=== PATIENT | male | born 1940 | race Hispanic/Latino ===

== ENCOUNTER 2018-05-22 13:33 | Emergency (ER) | payer OTHER ==
[~2018-05-22] VITALS: Ht 162.6 cm; Wt 59.0 kg
[~2018-05-22 13:33] MED LIST: BLOOD PRESSURE; BLOOD SUGAR; TYLENOL WITH C1 EACH PO; UNK HTN MED; [UNRECOGNIZED DRUG - REMARK]
--- OUTSIDE RECORDS SUMMARY | 2018-05-22 13:37 | XMS REPORT | Clinical Summary ---
Author Author MORGAN [facility] Address Unknown Phone Unavailable Care Team Providers Care Metal Temperer Name Role Phone Pj Claros Unavailable Allergies No Known Allergies Medications End Date Status Medication Sig Dispensed Refills Start Date 04/01/2019 Active aspirin 81 MG EC tablet Take 1 tablet 360 tablet 0 (81 mg total) 8 by mouth daily. 06/29/2018 Active atorvastatin (LIPITOR) 80 Take 1 tablet 90 tablet 0 MG tablet (80 mg total) 8 by mouth nightly for 90 days. 06/29/2018 Active metoprolol (LOPRESSOR) 25 Take 0.5 90 tablet 0 MG tablet tablets (12.5 8 mg total) by mouth 2 (two) times daily for 90 days. 03/31/2019 Active albuterol HFA (VENTOLIN Inhale 1 puff 1 Inhaler 2 HFA) 90 mcg/actuation by mouth via 8 inhaler inhaler every 6 (six) hours as needed for Wheezing. Active glimepiride (AMARYL) 4 MG Take 4 mg by 0 tablet mouth 2 (two) times daily. Active metFORMIN (GLUCOPHAGE) Take 1,000 mg 0 1000 MG tablet by mouth 2 (two) times daily with breakfast and dinner. Active acetaminophen-codeine Take 1 tablet 0 (TYLENOL #3) 300-30 mg by mouth per tablet every 4 (four) hours as needed for Pain. Active nitroglycerin (NITROSTAT) Place 0.4 mg 0 0.4 MG SL tablet under the tongue every 5 (five) minutes as needed for Chest pain Put 1 pill under tongue every 5min as needed for chest pain.No more than 3 doses in 15min.Call 911 if pain is unrelieved 5min after 1st dose . Active fluocinonide (LIDEX) 0.05 Apply 0 % cream topically 2 (two) times daily as needed. Active nicotine (NICODERM CQ) 21 Place 1 patch 0 mg/24 hr patch onto the skin daily Tapering down 14mg, 7 mg . Active clopidogrel (PLAVIX) 75 Take 75 mg by 0 mg tablet mouth daily. Active clotrimazole (LOTRIMIN) 1 Apply 0 % cream topically 2 (two) times daily. 05/20/2019 Active aspirin 81 MG EC tablet Take 1 tablet 90 tablet 3 (81 mg total) 8 by mouth daily. 05/20/2019 Active clopidogrel (PLAVIX) 75 Take 1 tablet 90 tablet 3 mg tablet (75 mg total) 8 by mouth daily. Active enoxaparin (LOVENOX) 60 Inject 0.6 10 Syringe 0 mg/0.6 mL Syrg mLs (60 mg 8 total) subcutaneousl y 2 (two) times daily. 04/13/2018 Discontinued acetaminophen (TYLENOL) Take 2 30 tablet 0 325 MG tablet tablets (650 8 mg total) by mouth every 4 (four) hours as needed for up to 360 days. 04/10/2018 acetaminophen-codeine Take 1 tablet 30 tablet 0 (TYLENOL #3) 300-30 mg by mouth 8 per tablet every 4 (four) hours as needed for up to 10 days. Max Daily Amount: 6 tablets 04/13/2018 Discontinued clopidogrel (PLAVIX) 75 Take 1 tablet 90 tablet 0 mg tablet (75 mg total) 8 by mouth daily for 90 days. 04/10/2018 docusate sodium (COLACE) Take 1 10 capsule 0 100 MG capsule capsule (100 8 mg total) by mouth 2 (two) times daily for 10 days. 05/17/2018 Discontinued lisinopril Take 1 tablet 90 tablet 0 (PRINIVIL,ZESTRIL) 2.5 MG (2.5 mg 8 tablet total) by mouth daily for 90 days. 04/03/2018 polyethylene glycol Take 17 g by 14 each 0 (GLYCOLAX) 17 gram packet mouth daily 8 for 3 days. 04/13/2018 Discontinued aspirin 81 MG EC tablet Take 81 mg by 0 mouth daily. 04/02/2018 Discontinued cilostazol (PLETAL) 50 MG Take 50 mg by 0 tablet mouth 2 (two) times daily. 04/02/2018 Discontinued baclofen (LIORESAL) 10 MG Take 10 mg by 0 tablet mouth 3 (three) times daily. 04/02/2018 Discontinued isosorbide mononitrate Take 30 mg by 0 (IMDUR) 30 MG 24 hr mouth daily. tablet 04/02/2018 Discontinued lisinopril Take 5 mg by 0 (PRINIVIL,ZESTRIL) 5 MG mouth daily. tablet 04/02/2018 Discontinued metoprolol (LOPRESSOR) 25 Take 25 mg by 0 MG tablet mouth daily. 04/02/2018 Discontinued fexofenadine (HOWARD) Take 180 mg 0 180 MG tablet by mouth daily. 05/17/2018 Discontinued cilostazol (PLETAL) 50 MG Take 50 mg by 0 tablet mouth 2 (two) times daily. 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 Acute coronary syndrome Hyperglycemia Encounters Care Team Description Date Type Specialty Alexander Bobo MD 05/18/2018 Anesthesia Event Rickey Diaz MD ABD AO & LOWER EXT ANGIOS/ POSS PPI 05/17/2018 Surgery Rickey Diaz MD PAD (peripheral artery disease) (HCC) (Primary Dx) 05/17/2018 Hospital Cardiology - Encounter 05/19/2018 Delonte Trejo MD S/P CABG x 3 (Primary Dx) 04/13/2018 Office Visit Transplant Flora English MD Left upper quadrant pain (Primary Dx); Acute coronary syndrome (HCC); Leukocytosis, unspecified type; Orthostatic hypotension; History of heart bypass surgery 04/07/2018 Emergency Emergency Medicine Delonte Trejo MD BYPASS,AORTO CORONARY JORJE/SVG 03/27/2018 Surgery Brittani Schuster MD 03/27/2018 Anesthesia Event Lynda Manzano MD L CATH & PCI 03/23/2018 Surgery Pj Boyer MD Castillo, Cesar Augusto, MD Shafii, Alexis Edward, MD NSTEMI (non-ST elevated myocardial infarction) (HCC) (Primary Dx); Acute respiratory insufficiency; Acute on chronic systolic heart failure (HCC); Internal carotid artery stenosis, left 03/23/2018 Hospital Cardiology - Encounter 04/02/2018 03/23/2018 Orders Only General Internal Medicine after 05/21/2017 Social History Date Tobacco Use Types Packs/Day Years Used Quit: 03/23/2018 Former Smoker Cigarettes 0.5 50 Smokeless Tobacco: Never Used Comments: Pt currently doing nicotine patches. Alcohol Use Drinks/Week oz/Week Comments No Sex Assigned at Date Recorded Not on file Industry Job Start Date Occupation Not on file Not on file Not on file Travel End Travel History Travel Start No recent travel history available. Last Filed Vital Signs Time Taken Vital Sign Reading 05/19/2018 8:08 PM ELECTROLYSIS NEEDLE OPERATOR Blood Pressure 106/53 05/19/2018 8:08 PM ELECTROLYSIS NEEDLE OPERATOR Pulse 91 05/19/2018 8:08 PM ELECTROLYSIS NEEDLE OPERATOR Temperature 36.6 C (97.8 F) 05/19/2018 8:08 PM ELECTROLYSIS NEEDLE OPERATOR Respiratory Rate 17 05/19/2018 8:08 PM ELECTROLYSIS NEEDLE OPERATOR Oxygen Saturation 97% 05/18/2018 11:16 AM ELECTROLYSIS NEEDLE OPERATOR Inhaled Oxygen 21% Concentration 05/19/2018 7:55 AM ELECTROLYSIS NEEDLE OPERATOR Weight 49.2 kg (108 lb 8.5 oz) 05/17/2018 9:56 AM ELECTROLYSIS NEEDLE OPERATOR Height 162.6 cm (5' 4") 05/19/2018 7:55 AM ELECTROLYSIS NEEDLE OPERATOR Body Mass Index 18.63 Plan of Treatment Care Team Description Date Type Specialty Eldon Brooke MD [address] [facility] [address] [place] [address] [phone] PERIPHERAL ANGIOS / AORTOGRAM 05/24/2018 Surgery Health Maintenance Due Date Last Done Comments INFLUENZA VACCINE 03/20/2018 Implants Device Identifier Shelf Expiration Date Model / Serial / Lot Implanted Type Area Manufactur er [id number] 02/17/2019 [id number] / / [id number] Device Clsr Angio-Seal Vip 6fr Cardiovasc ST RENU [id number] - [id number] ular MED:CARDIA Implanted: Qty: 1 on 05/17/2018 by Rickey Machado MD 07/13/2019 [id number] / N/A / [id number] Flseal Vhsd Full Strlprep 10ml Cement/Sharath N/A: Chest PALACIO:BIO [id number] - Sn/A ler/Adhesi SCI Implanted: Qty: 1 on 03/27/2018 by Delonte Beyer MD Procedures Comments Procedure Name Priority Date/Time Associated Diagnosis REPORT OF PROCEDURE - 05/22/2018 ENDOSCOPY SCAN 12:34 PM ELECTROLYSIS NEEDLE OPERATOR CARDIAC CATH REPORT - 05/22/2018 SCAN 12:34 PM ELECTROLYSIS NEEDLE OPERATOR RHYTHM STRIP - SCAN 05/22/2018 12:34 PM ELECTROLYSIS NEEDLE OPERATOR POCT-GLUCOSE METER Routine 05/19/2018 4:46 PM ELECTROLYSIS NEEDLE OPERATOR POCT-GLUCOSE METER Routine 05/19/2018 11:29 AM ELECTROLYSIS NEEDLE OPERATOR POCT-GLUCOSE METER Routine 05/19/2018 8:04 AM ELECTROLYSIS NEEDLE OPERATOR CBC W/PLT COUNT & AUTO Routine 05/19/2018 DIFFERENTIAL 4:43 AM ELECTROLYSIS NEEDLE OPERATOR MAGNESIUM Routine 05/19/2018 4:43 AM ELECTROLYSIS NEEDLE OPERATOR APTT Routine 05/19/2018 4:43 AM ELECTROLYSIS NEEDLE OPERATOR CBC W/PLT COUNT & AUTO Routine 05/19/2018 DIFFERENTIAL 4:43 AM ELECTROLYSIS NEEDLE OPERATOR POCT-GLUCOSE METER Routine 05/18/2018 9:40 PM ELECTROLYSIS NEEDLE OPERATOR POCT-GLUCOSE METER Routine 05/18/2018 5:22 PM ELECTROLYSIS NEEDLE OPERATOR POCT-GLUCOSE METER Routine 05/18/2018 12:55 PM ELECTROLYSIS NEEDLE OPERATOR POCT-GLUCOSE METER Routine 05/18/2018 8:14 AM ELECTROLYSIS NEEDLE OPERATOR APTT Routine 05/18/2018 4:10 AM ELECTROLYSIS NEEDLE OPERATOR CBC W/PLT COUNT & AUTO Routine 05/18/2018 DIFFERENTIAL 4:08 AM ELECTROLYSIS NEEDLE OPERATOR MAGNESIUM Routine 05/18/2018 4:08 AM ELECTROLYSIS NEEDLE OPERATOR BASIC METABOLIC PANEL (7) Routine 05/18/2018 4:08 AM ELECTROLYSIS NEEDLE OPERATOR CBC W/PLT COUNT & AUTO Routine 05/18/2018 DIFFERENTIAL 4:08 AM ELECTROLYSIS NEEDLE OPERATOR POCT-ACT Routine 05/17/2018 6:58 PM ELECTROLYSIS NEEDLE OPERATOR ABD AO & LOWER EXT 05/17/2018 PAD (peripheral artery ANGIOS/ POSS PPI 4:45 PM ELECTROLYSIS NEEDLE OPERATOR disease) (HCC) Case Notes POP6. 604mGy POCT-GLUCOSE METER Routine 05/17/2018 11:34 AM ELECTROLYSIS NEEDLE OPERATOR ED ECG INTERPRETATION Routine 04/07/2018 11:18 PM CDT 2D ECHO W/ DOPPLER STAT 04/07/2018 (CW/PW/COLOR) 6:20 PM CDT POCT-LACTIC ACID, VENOUS Routine 04/07/2018 4:58 PM CDT URINALYSIS W/ REFLEX STAT 04/07/2018 URINE CULTURE 3:19 PM CDT POCT-LACTIC ACID, VENOUS Routine 04/07/2018 2:44 PM CDT BLOOD CULTURE STAT 04/07/2018 12:07 PM CDT CBC W/PLT COUNT & AUTO STAT 04/07/2018 DIFFERENTIAL 12:06 PM CDT B-TYPE NATRIURETIC FACTOR STAT 04/07/2018 (BNP) 12:06 PM CDT CREATINE KINASE (CK), STAT 04/07/2018 TOTAL AND MB 12:06 PM CDT AMYLASE STAT 04/07/2018 12:06 PM CDT CBC W/PLT COUNT & AUTO STAT 04/07/2018 DIFFERENTIAL 12:06 PM CDT PROTHROMBIN TIME/INR STAT 04/07/2018 12:06 PM CDT TROPONIN I STAT 04/07/2018 12:06 PM CDT MAGNESIUM STAT 04/07/2018 12:06 PM CDT LIPASE STAT 04/07/2018 12:06 PM CDT HEPATIC FUNCTION PANEL STAT 04/07/2018 12:06 PM CDT BASIC METABOLIC PANEL (7) STAT 04/07/2018 12:06 PM CDT PROCALCITONIN STAT 04/07/2018 12:06 PM CDT XR CHEST 1 VIEW STAT 04/07/2018 PORTABLE/BEDSIDE 11:55 AM CDT POCT-LACTIC ACID, VENOUS Routine 04/07/2018 11:52 AM CDT POCT-GLUCOSE METER Routine 04/07/2018 11:51 AM CDT BLOOD CULTURE STAT 04/07/2018 11:50 AM CDT ECG 12-LEAD Routine 04/07/2018 11:33 AM CDT Procedure Note - Interface, External Ris In - 04/07/2018 1:47 PM CDT Ventricula r Rate 75 BPM Atrial Rate 75 BPM P-R Interval 150 ms QRS Duration 96 ms Q-T Interval 448 ms QTC Calculatio n(Bazett) 500 ms P [place] 82 degrees R [place] -24 degrees T [place] 109 degrees Normal sinus rhythm Low voltage QRS ST & Marked T wave abnormalit y, consider anterolate ral ischemia Prolonged QT Abnormal ECG When compared with ECG of 09-OCT-201 8 06:17, Criteria for Septal infarct are no longer Present Criteria for Inferior infarct are no longer Present T wave inversion now evident in Anterior leads QT has lengthened ECG 12-LEAD Routine 04/07/2018 11:33 AM CDT REPORT OF PROCEDURE - 04/04/2018 ENDOSCOPY SCAN 11:00 AM CDT CARDIAC CATH REPORT - 04/04/2018 SCAN 11:00 AM CDT RHYTHM STRIP - SCAN 04/04/2018 11:00 AM CDT POCT-GLUCOSE METER Routine 04/02/2018 12:26 PM CDT POCT-GLUCOSE METER Routine 04/02/2018 7:12 AM CDT POCT-GLUCOSE METER Routine 04/01/2018 9:14 PM CDT POCT-GLUCOSE METER Routine 04/01/2018 5:10 PM CDT POCT-GLUCOSE METER Routine 04/01/2018 12:01 PM CDT POCT-GLUCOSE METER Routine 04/01/2018 8:01 AM CDT XR CHEST 1 VIEW Routine 04/01/2018 PORTABLE/BEDSIDE 7:29 AM CDT CBC W/PLT COUNT & AUTO Routine 04/01/2018 DIFFERENTIAL 4:42 AM CDT MAGNESIUM Routine 04/01/2018 4:42 AM CDT BASIC METABOLIC PANEL (7) Routine 04/01/2018 4:42 AM CDT CBC W/PLT COUNT & AUTO Routine 04/01/2018 DIFFERENTIAL 4:42 AM CDT POCT-GLUCOSE METER Routine 03/31/2018 9:14 PM CDT POCT-GLUCOSE METER Routine 03/31/2018 5:47 PM CDT POCT-GLUCOSE METER Routine 03/31/2018 12:59 PM CDT POCT-GLUCOSE METER Routine 03/31/2018 8:22 AM CDT XR CHEST 1 VIEW Routine 03/31/2018 PORTABLE/BEDSIDE 7:10 AM CDT CBC W/PLT COUNT & AUTO Routine 03/31/2018 DIFFERENTIAL 4:22 AM CDT MAGNESIUM Routine 03/31/2018 4:22 AM CDT BASIC METABOLIC PANEL (7) Routine 03/31/2018 4:22 AM CDT APTT Routine 03/31/2018 4:22 AM CDT CBC W/PLT COUNT & AUTO Routine 03/31/2018 DIFFERENTIAL 4:22 AM CDT POCT-GLUCOSE METER Routine 03/30/2018 9:04 PM CDT POCT-GLUCOSE METER Routine 03/30/2018 5:01 PM CDT POCT-GLUCOSE METER Routine 03/30/2018 1:17 PM CDT POCT-GLUCOSE METER Routine 03/30/2018 7:34 AM CDT XR CHEST 1 VIEW Routine 03/30/2018 PORTABLE/BEDSIDE 6:45 AM CDT CBC W/PLT COUNT & AUTO Routine 03/30/2018 DIFFERENTIAL 4:25 AM CDT MAGNESIUM Routine 03/30/2018 4:25 AM CDT CALCIUM, IONIZED STAT 03/30/2018 4:25 AM CDT CBC W/PLT COUNT & AUTO Routine 03/30/2018 DIFFERENTIAL 4:25 AM CDT BASIC METABOLIC PANEL (7) Routine 03/30/2018 4:25 AM CDT APTT Routine 03/30/2018 4:25 AM CDT POCT-GLUCOSE METER Routine 03/29/2018 10:24 PM CDT POCT-GLUCOSE METER Routine 03/29/2018 6:35 PM CDT TRANSFUSION SERVICE 03/29/2018 REPORT - SCAN 6:02 PM CDT MAGNESIUM STAT 03/29/2018 1:43 PM CDT BASIC METABOLIC PANEL (7) STAT 03/29/2018 1:43 PM CDT POCT-GLUCOSE METER Routine 03/29/2018 12:14 PM CDT POCT-GLUCOSE METER Routine 03/29/2018 8:17 AM CDT BASIC METABOLIC PANEL (7) STAT 03/29/2018 7:49 AM CDT XR CHEST 1 VIEW Routine 03/29/2018 PORTABLE/BEDSIDE 6:44 AM CDT (CELLAVISION MANUAL DIFF) Routine 03/29/2018 4:00 AM CDT CBC W/PLT COUNT & AUTO Routine 03/29/2018 DIFFERENTIAL 4:00 AM CDT PHOSPHORUS Routine 03/29/2018 4:00 AM CDT MAGNESIUM Routine 03/29/2018 4:00 AM CDT CBC W/PLT COUNT & AUTO Routine 03/29/2018 DIFFERENTIAL 4:00 AM CDT PREPARE PLATELETS STAT 03/28/2018 11:54 PM CDT PREPARE RBC STAT 03/28/2018 11:54 PM CDT POCT-GLUCOSE METER Routine 03/28/2018 9:46 PM CDT OXYGEN SATURATION, STAT 03/28/2018 MEASURED 8:41 PM CDT TRANSFUSION SERVICE 03/28/2018 REPORT - SCAN 6:03 PM CDT CALCIUM, IONIZED STAT 03/28/2018 4:56 PM CDT POTASSIUM Routine 03/28/2018 4:56 PM CDT GLUCOSE Routine 03/28/2018 4:56 PM CDT BLOOD GAS, ARTERIAL Routine 03/28/2018 4:56 PM CDT MAGNESIUM Routine 03/28/2018 4:56 PM CDT POCT-GLUCOSE METER Routine 03/28/2018 4:49 PM CDT POCT-GLUCOSE METER Routine 03/28/2018 2:33 PM CDT BLOOD GAS, ARTERIAL STAT 03/28/2018 12:10 PM CDT POCT-GLUCOSE METER Routine 03/28/2018 12:08 PM CDT GLUCOSE-STAT LAB STAT 03/28/2018 9:39 AM CDT BLOOD GAS, ARTERIAL STAT 03/28/2018 9:39 AM CDT HGB/HCT (H&H) - STAT LAB STAT 03/28/2018 9:39 AM CDT POTASSIUM-STAT LAB STAT 03/28/2018 9:39 AM CDT SODIUM NA-STAT LAB STAT 03/28/2018 9:39 AM CDT (CELLAVISION MANUAL DIFF) STAT 03/28/2018 9:35 AM CDT CBC W/PLT COUNT & AUTO STAT 03/28/2018 DIFFERENTIAL 9:35 AM CDT LACTIC ACID, ARTERIAL, STAT 03/28/2018 WHOLE BLOOD 9:35 AM CDT CBC W/PLT COUNT & AUTO STAT 03/28/2018 DIFFERENTIAL 9:35 AM CDT LACTIC ACID, ARTERIAL, STAT 03/28/2018 WHOLE BLOOD 9:15 AM CDT POCT-GLUCOSE METER Routine 03/28/2018 7:03 AM CDT ECG 12-LEAD Routine 03/28/2018 6:17 AM CDT Procedure Note - Interface, External Ris In - 03/28/2018 6:33 AM CDT Ventricula r Rate 74 BPM Atrial Rate 74 BPM P-R Interval 122 ms QRS Duration 82 ms Q-T Interval 382 ms QTC Calculatio n(Bazett) 424 ms P [place] 68 degrees R [place] -2 degrees T [place] 54 degrees Normal sinus rhythm Low voltage QRS Septal infarct (cited on or before ) Inferior infarct (cited on or before ) Abnormal ECG When compared with ECG of 05:53, Serial changes of evolving Septal infarct Present Serial changes of evolving Inferior infarct Present ECG 12-LEAD Routine 03/28/2018 6:17 AM CDT POCT-GLUCOSE METER Routine 03/28/2018 6:07 AM CDT POCT-GLUCOSE METER Routine 03/28/2018 5:15 AM CDT POCT-GLUCOSE METER Routine 03/28/2018 3:43 AM CDT XR CHEST 1 VIEW Routine 03/28/2018 PORTABLE/BEDSIDE 3:43 AM CDT BLOOD GAS, ARTERIAL STAT 03/28/2018 3:34 AM CDT CALCIUM, IONIZED STAT 03/28/2018 3:34 AM CDT BASIC METABOLIC PANEL (7) STAT 03/28/2018 3:34 AM CDT PHOSPHORUS Routine 03/28/2018 3:34 AM CDT MAGNESIUM Routine 03/28/2018 3:34 AM CDT CBC W/PLT COUNT & AUTO Routine 03/28/2018 DIFFERENTIAL 3:29 AM CDT OXYGEN SATURATION, Routine 03/28/2018 MEASURED 3:29 AM CDT GLUCOSE-STAT LAB STAT 03/28/2018 3:29 AM CDT LACTIC ACID, ARTERIAL, STAT 03/28/2018 WHOLE BLOOD 3:29 AM CDT CBC W/PLT COUNT & AUTO Routine 03/28/2018 DIFFERENTIAL 3:29 AM CDT MAGNESIUM Routine 03/28/2018 12:42 AM CDT HGB/HCT (H&H) - STAT LAB STAT 03/28/2018 12:40 AM CDT GLUCOSE-STAT LAB STAT 03/28/2018 12:40 AM CDT POTASSIUM-STAT LAB STAT 03/28/2018 12:40 AM CDT BLOOD GAS, ARTERIAL STAT 03/28/2018 12:40 AM CDT RRL CRITICAL LABS STAT 03/28/2018 (ABG,NA,K,H&H,GLUCOSE) 12:40 AM CDT POCT-GLUCOSE METER Routine 03/27/2018 11:26 PM CDT HGB/HCT (H&H) - STAT LAB STAT 03/27/2018 8:02 PM CDT GLUCOSE-STAT LAB STAT 03/27/2018 8:02 PM CDT POTASSIUM-STAT LAB STAT 03/27/2018 8:02 PM CDT SODIUM NA-STAT LAB STAT 03/27/2018 8:02 PM CDT BLOOD GAS, ARTERIAL STAT 03/27/2018 8:02 PM CDT LACTIC ACID, ARTERIAL, STAT 03/27/2018 WHOLE BLOOD 8:02 PM CDT CALCIUM, IONIZED Routine 03/27/2018 8:02 PM CDT MAGNESIUM Routine 03/27/2018 8:02 PM CDT RRL CRITICAL LABS STAT 03/27/2018 (ABG,NA,K,H&H,GLUCOSE) 8:02 PM CDT TRANSFUSION SERVICE 03/27/2018 REPORT - SCAN 6:01 PM CDT POCT-GLUCOSE METER Routine 03/27/2018 5:46 PM CDT BLOOD GAS, ARTERIAL STAT 03/27/2018 4:21 PM CDT XR CHEST 1 VIEW Routine 03/27/2018 PORTABLE/BEDSIDE 2:45 PM CDT OXYGEN SATURATION, Routine 03/27/2018 MEASURED 2:34 PM CDT CBC W/PLT COUNT & AUTO STAT 03/27/2018 DIFFERENTIAL 2:30 PM CDT BLOOD GAS, ARTERIAL STAT 03/27/2018 2:30 PM CDT LACTIC ACID, ARTERIAL, STAT 03/27/2018 WHOLE BLOOD 2:30 PM CDT BASIC METABOLIC PANEL (7) STAT 03/27/2018 2:30 PM CDT CBC W/PLT COUNT & AUTO STAT 03/27/2018 DIFFERENTIAL 2:30 PM CDT PHOSPHORUS STAT 03/27/2018 2:30 PM CDT GLUCOSE STAT 03/27/2018 2:30 PM CDT MAGNESIUM STAT 03/27/2018 2:30 PM CDT POTASSIUM STAT 03/27/2018 2:30 PM CDT SODIUM STAT 03/27/2018 2:30 PM CDT APTT Routine 03/27/2018 2:30 PM CDT PLATELET COUNT Routine 03/27/2018 1:04 PM CDT HGB/HCT (H&H) - STAT LAB STAT 03/27/2018 1:02 PM CDT GLUCOSE-STAT LAB STAT 03/27/2018 1:02 PM CDT POTASSIUM-STAT LAB STAT 03/27/2018 1:02 PM CDT SODIUM NA-STAT LAB STAT 03/27/2018 1:02 PM CDT BLOOD GAS, ARTERIAL STAT 03/27/2018 1:02 PM CDT THROMBOELASTOGRAPH (TEG) STAT 03/27/2018 1:02 PM CDT APTT STAT 03/27/2018 1:02 PM CDT PROTHROMBIN TIME/INR STAT 03/27/2018 1:02 PM CDT CALCIUM, IONIZED STAT 03/27/2018 1:02 PM CDT RRL CRITICAL LABS STAT 03/27/2018 (ABG,NA,K,H&H,GLUCOSE) 1:02 PM CDT POCT-ACT Routine 03/27/2018 1:02 PM CDT ANESTHESIA JOSÉ LUIS Routine 03/27/2018 12:45 PM CDT TRANSFUSE LEUKO-REDUCED Routine 03/27/2018 PLATELETS 12:38 PM CDT POCT-ACT Routine 03/27/2018 12:02 PM CDT HGB/HCT (H&H) - STAT LAB STAT 03/27/2018 11:58 AM CDT GLUCOSE-STAT LAB STAT 03/27/2018 11:58 AM CDT POTASSIUM-STAT LAB STAT 03/27/2018 11:58 AM CDT SODIUM NA-STAT LAB STAT 03/27/2018 11:58 AM CDT BLOOD GAS, ARTERIAL STAT 03/27/2018 11:58 AM CDT RRL CRITICAL LABS STAT 03/27/2018 (ABG,NA,K,H&H,GLUCOSE) 11:58 AM CDT POCT-ACT Routine 03/27/2018 11:32 AM CDT HGB/HCT (H&H) - STAT LAB STAT 03/27/2018 11:29 AM CDT GLUCOSE-STAT LAB STAT 03/27/2018 11:29 AM CDT POTASSIUM-STAT LAB STAT 03/27/2018 11:29 AM CDT SODIUM NA-STAT LAB STAT 03/27/2018 11:29 AM CDT BLOOD GAS, ARTERIAL STAT 03/27/2018 11:29 AM CDT RRL CRITICAL LABS STAT 03/27/2018 (ABG,NA,K,H&H,GLUCOSE) 11:29 AM CDT POCT-ACT Routine 03/27/2018 11:04 AM CDT HGB/HCT (H&H) - STAT LAB STAT 03/27/2018 10:57 AM CDT GLUCOSE-STAT LAB STAT 03/27/2018 10:57 AM CDT POTASSIUM-STAT LAB STAT 03/27/2018 10:57 AM CDT SODIUM NA-STAT LAB STAT 03/27/2018 10:57 AM CDT BLOOD GAS, ARTERIAL STAT 03/27/2018 10:57 AM CDT RRL CRITICAL LABS STAT 03/27/2018 (ABG,NA,K,H&H,GLUCOSE) 10:57 AM CDT POCT-ACT Routine 03/27/2018 10:29 AM CDT TRANSFUSE LEUKO-REDUCED Routine 03/27/2018 RED BLOOD CELLS 9:35 AM CDT HGB/HCT (H&H) - STAT LAB STAT 03/27/2018 9:30 AM CDT GLUCOSE-STAT LAB STAT 03/27/2018 9:30 AM CDT POTASSIUM-STAT LAB STAT 03/27/2018 9:30 AM CDT SODIUM NA-STAT LAB STAT 03/27/2018 9:30 AM CDT BLOOD GAS, ARTERIAL STAT 03/27/2018 9:30 AM CDT CALCIUM, IONIZED STAT 03/27/2018 9:30 AM CDT RRL CRITICAL LABS STAT 03/27/2018 (ABG,NA,K,H&H,GLUCOSE) 9:30 AM CDT JOSÉ LUIS 03/27/2018 Coronary artery disease 8:00 AM CDT due to calcified coronary lesion ENDOSCOPIC HARVEST,VEIN 03/27/2018 Coronary artery disease 8:00 AM CDT due to calcified coronary lesion BYPASS,AORTO CORONARY 03/27/2018 Coronary artery disease JORJE/SVG 8:00 AM CDT due to calcified coronary lesion POCT-GLUCOSE METER Routine 03/27/2018 7:55 AM CDT POCT-GLUCOSE METER Routine 03/27/2018 6:56 AM CDT POCT-GLUCOSE METER Routine 03/27/2018 5:55 AM CDT XR CHEST 1 VIEW Routine 03/27/2018 PORTABLE/BEDSIDE 5:39 AM CDT POCT-GLUCOSE METER Routine 03/27/2018 4:56 AM CDT POCT-GLUCOSE METER Routine 03/27/2018 3:56 AM CDT CBC W/PLT COUNT & AUTO Routine 03/27/2018 DIFFERENTIAL 3:12 AM CDT POTASSIUM Routine 03/27/2018 3:12 AM CDT APTT Routine 03/27/2018 3:12 AM CDT MAGNESIUM Routine 03/27/2018 3:12 AM CDT CBC W/PLT COUNT & AUTO Routine 03/27/2018 DIFFERENTIAL 3:12 AM CDT POCT-GLUCOSE METER Routine 03/27/2018 3:05 AM CDT POCT-GLUCOSE METER Routine 03/27/2018 1:36 AM CDT POCT-GLUCOSE METER Routine 03/26/2018 11:53 PM CDT APTT Routine 03/26/2018 10:59 PM CDT POCT-GLUCOSE METER Routine 03/26/2018 10:38 PM CDT POCT-GLUCOSE METER Routine 03/26/2018 5:08 PM CDT TYPE AND SCREEN, Routine 03/26/2018 AUTOMATED 4:07 PM CDT APTT Routine 03/26/2018 4:07 PM CDT HEPARIN ANTIBODY AP Routine 03/26/2018 4:07 PM CDT POTASSIUM Routine 03/26/2018 4:07 PM CDT MAGNESIUM Routine 03/26/2018 4:07 PM CDT CAROTID DOPPLER Routine 03/26/2018 UNILATERAL 12:30 PM CDT POCT-GLUCOSE METER Routine 03/26/2018 12:05 PM CDT APTT Routine 03/26/2018 10:25 AM CDT VANCOMYCIN LEVEL, TROUGH Timed 03/26/2018 10:25 AM CDT POCT-GLUCOSE METER Routine 03/26/2018 7:33 AM CDT POCT-GLUCOSE METER Routine 03/26/2018 7:02 AM CDT POCT-GLUCOSE METER Routine 03/26/2018 6:54 AM CDT POCT-GLUCOSE METER Routine 03/26/2018 5:04 AM CDT XR CHEST 1 VIEW Routine 03/26/2018 PORTABLE/BEDSIDE 4:17 AM CDT (CELLAVISION MANUAL DIFF) Routine 03/26/2018 4:04 AM CDT CBC W/PLT COUNT & AUTO Routine 03/26/2018 DIFFERENTIAL 4:04 AM CDT APTT Routine 03/26/2018 4:04 AM CDT MAGNESIUM Routine 03/26/2018 4:04 AM CDT BASIC METABOLIC PANEL (7) Routine 03/26/2018 4:04 AM CDT CBC W/PLT COUNT & AUTO Routine 03/26/2018 DIFFERENTIAL 4:04 AM CDT POCT-GLUCOSE METER Routine 03/26/2018 2:50 AM CDT POCT-GLUCOSE METER Routine 03/26/2018 1:49 AM CDT POCT-GLUCOSE METER Routine 03/26/2018 1:07 AM CDT TROPONIN I STAT 03/25/2018 11:39 PM CDT POCT-GLUCOSE METER Routine 03/25/2018 11:37 PM CDT POCT-GLUCOSE METER Routine 03/25/2018 10:36 PM CDT POCT-GLUCOSE METER Routine 03/25/2018 8:57 PM CDT APTT Routine 03/25/2018 8:50 PM CDT POCT-GLUCOSE METER Routine 03/25/2018 4:46 PM CDT POTASSIUM Routine 03/25/2018 4:46 PM CDT MAGNESIUM Routine 03/25/2018 4:46 PM CDT BASIC METABOLIC PANEL (7) Routine 03/25/2018 4:46 PM CDT TROPONIN I STAT 03/25/2018 4:46 PM CDT POCT-GLUCOSE METER Routine 03/25/2018 3:39 PM CDT APTT Routine 03/25/2018 3:05 PM CDT POCT-GLUCOSE METER Routine 03/25/2018 2:56 PM CDT POCT-GLUCOSE METER Routine 03/25/2018 2:04 PM CDT POCT-GLUCOSE METER Routine 03/25/2018 1:09 PM CDT OXYGEN SATURATION, Routine 03/25/2018 MEASURED 12:29 PM CDT PROCALCITONIN Routine 03/25/2018 12:29 PM CDT POCT-GLUCOSE METER Routine 03/25/2018 11:17 AM CDT POCT-GLUCOSE METER Routine 03/25/2018 9:39 AM CDT TROPONIN I STAT 03/25/2018 8:10 AM CDT POCT-GLUCOSE METER Routine 03/25/2018 7:58 AM CDT APTT Routine 03/25/2018 6:50 AM CDT POCT-GLUCOSE METER Routine 03/25/2018 6:47 AM CDT POCT-GLUCOSE METER Routine 03/25/2018 6:00 AM CDT ECG 12-LEAD Routine 03/25/2018 5:53 AM CDT Procedure Note - Interface, External Ris In - 03/25/2018 7:07 AM CDT Ventricula r Rate 107 BPM Atrial Rate 107 BPM P-R Interval 140 ms QRS Duration 96 ms Q-T Interval 334 ms QTC Calculatio n([place]) 445 ms P [place] 69 degrees R [place] 24 degrees T [place] 73 degrees Sinus tachycardi a Possible Left atrial enlargemen t Low voltage QRS Possible Inferior infarct , age undetermin ed Anterosept al infarct , possibly acute ACUTE [place] / STEMI Abnormal ECG When compared with ECG of 8 05:50, Previous ECG has undetermin ed rhythm, needs review ECG 12-LEAD STAT 03/25/2018 5:53 AM CDT ECG 12-LEAD Routine 03/25/2018 5:50 AM CDT Procedure Note - Interface, External Ris In - 03/25/2018 7:06 AM CDT Ventricula r Rate 0 BPM Atrial Rate 0 BPM QRS Duration 0 ms Q-T Interval 0 ms QTC Calculatio n(Bazett) 0 ms R Granby 0 degrees T Gran[place] 0 degrees No QRS complexes found, no ECG analysis possible When compared with ECG of 8 08:53, Current undetermin ed rhythm precludes rhythm comparison , needs review XR CHEST 1 VIEW Routine 03/25/2018 PORTABLE/BEDSIDE 4:11 AM CDT POCT-GLUCOSE METER Routine 03/25/2018 3:49 AM CDT CBC W/PLT COUNT & AUTO Routine 03/25/2018 DIFFERENTIAL 3:44 AM CDT MAGNESIUM Routine 03/25/2018 3:44 AM CDT BASIC METABOLIC PANEL (7) Routine 03/25/2018 3:44 AM CDT CBC W/PLT COUNT & AUTO Routine 03/25/2018 DIFFERENTIAL 3:44 AM CDT POCT-GLUCOSE METER Routine 03/25/2018 12:54 AM CDT APTT Routine 03/24/2018 11:40 PM CDT GLUCOSE Routine 03/24/2018 11:40 PM CDT POTASSIUM Routine 03/24/2018 11:40 PM CDT MAGNESIUM Routine 03/24/2018 11:40 PM CDT TROPONIN I STAT 03/24/2018 11:40 PM CDT POCT-GLUCOSE METER Routine 03/24/2018 10:34 PM CDT POCT-GLUCOSE METER Routine 03/24/2018 8:37 PM CDT VEIN MAPPING LEGS Routine 03/24/2018 BILATERAL 7:15 PM CDT CAROTID DOPPLER BILATERAL Routine 03/24/2018 6:40 PM CDT POCT-GLUCOSE METER Routine 03/24/2018 6:32 PM CDT OXYGEN SATURATION, Routine 03/24/2018 MEASURED 6:25 PM CDT TRANSFUSION SERVICE 03/24/2018 REPORT - SCAN 6:02 PM CDT POCT-GLUCOSE METER Routine 03/24/2018 5:05 PM CDT TROPONIN I STAT 03/24/2018 4:39 PM CDT XR ABDOMEN 1 VIEW MARQUISE 03/24/2018 4:12 PM CDT BLOOD GAS, VENOUS MARQUISE 03/24/2018 2:55 PM CDT APTT Routine 03/24/2018 2:55 PM CDT POCT-GLUCOSE METER Routine 03/24/2018 2:09 PM CDT POCT-GLUCOSE METER Routine 03/24/2018 12:47 PM CDT 2D ECHO W/ DOPPLER STAT 03/24/2018 (CW/PW/COLOR) 12:03 PM CDT TROPONIN I STAT 03/24/2018 11:52 AM CDT POCT-GLUCOSE METER Routine 03/24/2018 11:18 AM CDT HEPATIC FUNCTION PANEL STAT 03/24/2018 10:57 AM CDT MAGNESIUM Routine 03/24/2018 10:57 AM CDT POTASSIUM Routine 03/24/2018 10:57 AM CDT APTT Routine 03/24/2018 10:56 AM CDT POCT-GLUCOSE METER Routine 03/24/2018 10:10 AM CDT POCT-GLUCOSE METER Routine 03/24/2018 9:10 AM CDT ECG 12-LEAD Routine 03/24/2018 8:53 AM CDT POCT-GLUCOSE METER Routine 03/24/2018 7:56 AM CDT POCT-GLUCOSE METER Routine 03/24/2018 6:25 AM CDT XR CHEST 1 VIEW STAT 03/24/2018 PORTABLE/BEDSIDE 6:07 AM CDT POCT-GLUCOSE METER Routine 03/24/2018 5:04 AM CDT CBC W/PLT COUNT & AUTO Routine 03/24/2018 DIFFERENTIAL 3:55 AM CDT OXYGEN SATURATION, Routine 03/24/2018 MEASURED 3:55 AM CDT APTT Routine 03/24/2018 3:55 AM CDT MAGNESIUM Routine 03/24/2018 3:55 AM CDT GLUCOSE STAT 03/24/2018 3:55 AM CDT BASIC METABOLIC PANEL (7) Routine 03/24/2018 3:55 AM CDT CBC W/PLT COUNT & AUTO Routine 03/24/2018 DIFFERENTIAL 3:55 AM CDT POCT-GLUCOSE METER Routine 03/24/2018 3:49 AM CDT POCT-GLUCOSE METER Routine 03/24/2018 2:43 AM CDT POCT-GLUCOSE METER Routine 03/24/2018 1:35 AM CDT BLOOD GAS, VENOUS Routine 03/23/2018 11:49 PM CDT FIBRINOGEN STAT 03/23/2018 11:49 PM CDT APTT STAT 03/23/2018 11:49 PM CDT PROTHROMBIN TIME/INR STAT 03/23/2018 11:49 PM CDT LACTIC ACID, ARTERIAL, STAT 03/23/2018 WHOLE BLOOD 11:49 PM CDT HGB/HCT (H&H) - STAT LAB STAT 03/23/2018 11:49 PM CDT POTASSIUM-STAT LAB STAT 03/23/2018 11:49 PM CDT CALCIUM, IONIZED STAT 03/23/2018 11:49 PM CDT MAGNESIUM STAT 03/23/2018 11:49 PM CDT BASIC METABOLIC PANEL (7) STAT 03/23/2018 11:49 PM CDT XR CHEST 1 VIEW STAT 03/23/2018 PORTABLE/BEDSIDE 11:10 PM CDT OXYGEN SATURATION, MARQUISE 03/23/2018 MEASURED 10:37 PM CDT POCT-ACT Routine 03/23/2018 9:25 PM CDT POCT-ACT Routine 03/23/2018 8:21 PM CDT POCT-ACT Routine 03/23/2018 8:08 PM CDT L CATH & PCI 03/23/2018 Chest pain, unspecified 6:34 PM CDT type XR CHEST 1 VIEW STAT 03/23/2018 PORTABLE/BEDSIDE 6:14 PM CDT CBC W/PLT COUNT & AUTO Routine 03/23/2018 DIFFERENTIAL 6:06 PM CDT TYPE AND SCREEN, STAT 03/23/2018 AUTOMATED 6:06 PM CDT TROPONIN I Routine 03/23/2018 6:06 PM CDT PHOSPHORUS Routine 03/23/2018 6:06 PM CDT MAGNESIUM Routine 03/23/2018 6:06 PM CDT PROCALCITONIN Routine 03/23/2018 6:06 PM CDT CREATINE KINASE (CK) STAT 03/23/2018 6:06 PM CDT FIBRINOGEN STAT 03/23/2018 6:06 PM CDT PROTHROMBIN TIME/INR STAT 03/23/2018 6:06 PM CDT LACTIC ACID, ARTERIAL, STAT 03/23/2018 WHOLE BLOOD 6:06 PM CDT CALCIUM, IONIZED Routine 03/23/2018 6:06 PM CDT BASIC METABOLIC PANEL (7) STAT 03/23/2018 6:06 PM CDT CBC W/PLT COUNT & AUTO Routine 03/23/2018 DIFFERENTIAL 6:06 PM CDT ECG 12-LEAD STAT 03/23/2018 5:57 PM CDT after 05/21/2017 Results * EKG-SCANNED (05/22/2018 12:34 PM ELECTROLYSIS NEEDLE OPERATOR) Only the most recent of 2 results within the time period is included. Narrative Performed At * CARDIAC CATH REPORT - SCAN (05/22/2018 12:34 PM ELECTROLYSIS NEEDLE OPERATOR) Narrative Performed At * RHYTHM STRIP - SCAN (05/22/2018 12:34 PM ELECTROLYSIS NEEDLE OPERATOR) Only the most recent of 2 results within the time period is included. Narrative Performed At * POC-Glucose meter (05/19/2018 4:46 PM ELECTROLYSIS NEEDLE OPERATOR) Only the most recent of 85 results within the time period is included. POC-Glucose Meter 146 (H)Comment: TESTED AT 70 - 110 mg/dL [facility] [address] [facility] [address] Specimen Blood Performing Organization Address City/State/Zipcode Phone Number [facility] [address] [place], [place] [phone] MED[facility]ENTER * CBC with platelet count + automated diff (05/19/2018 4:43 AM ELECTROLYSIS NEEDLE OPERATOR) Only the most recent of 15 results within the time period is included. WBC 10.2 3.5 - 10.5 K/L [facility] RBC 3.31 (L) 4.63 - 6.08 M/L [facility] Hemoglobin 9.6 (L) 13.7 - 17.5 GM/DL [facility] Hematocrit 30.4 (L) 40.1 - 51.0 % [facility] MCV 91.8 79.0 - 92.2 fL [facility] MCH 29.0 25.7 - 32.2 pg [facility] MCHC 31.6 (L) 32.3 - 36.5 GM/DL [facility] RDW 13.4 11.6 - 14.4 % [facility] Platelets 262 150 - 450 K/CU MM [facility] MPV 10.7 9.4 - 12.4 fL [facility] nRBC 0 0 - 0 /100 WBC [facility] % Neutros 62 % [facility] % Lymphs 23 % [facility] % Monos 8 % [facility] % Eos 6 % [facility] % Baso 1 % [facility] # Neutros 6.31 (H) 1.78 - 5.38 K/L [facility] # Lymphs 2.36 1.32 - 3.57 K/L [facility] # Monos 0.78 0.30 - 0.82 K/L [facility] # Eos 0.66 (H) 0.04 - 0.54 K/L [facility] # Baso 0.09 (H) 0.01 - 0.08 K/L [facility] Immature 0 0 - 1 % [facility] Granulocytes-[facility] Specimen Blood - Arm, Left Performing Organization Address [facility] Phone Number [address] * aPTT (05/19/2018 4:43 AM ELECTROLYSIS NEEDLE OPERATOR) Only the most recent of 19 results within the time period is included. PTT 44.7 (H) 22.5 - 36.0 seconds [facility] Specimen Blood - Arm, Left Performing Organization Address [facility] Phone Number [address] * Magnesium (05/19/2018 4:43 AM ELECTROLYSIS NEEDLE OPERATOR) Only the most recent of 23 results within the time period is included. Magnesium 2.1 1.6 - 2.6 mg/dL [facility] Specimen Blood - Arm, Left Performing Organization Address City/[facility] Phone Number [address] * Basic Metabolic Panel (05/18/2018 4:08 AM ELECTROLYSIS NEEDLE OPERATOR) Only the most recent of 15 results within the time period is included. Sodium 136 136 - 145 meq/L [facility] Potassium 3.9 3.5 - 5.1 meq/L [facility] Chloride 101 98 - 107 meq/L [facility] CO2 27 22 - 29 meq/L [facility] BUN 11 7 - 21 mg/dL [facility] Creatinine 0.78 0.57 - 1.25 mg/dL [facility] Glucose 152 (H) 70 - 105 mg/dL [facility] Calcium 8.8 8.4 - 10.2 mg/dL [facility] EGFR Comment: INSUFFICIENT CLINICAL mL/min/1.73 sq m [facility] DATA TO CALCULATE ESTIMATED [facility] GFR. Specimen Blood - Arm, Left Performing Organization Address [facility] Phone Number [address] * POC ACTIVATED CLOTTING TIME (05/17/2018 6:58 PM ELECTROLYSIS NEEDLE OPERATOR) Only the most recent of 9 results within the time period is included. Activated Clotting Time 230Comment: TESTED AT [facility] sec [address] Specimen Blood Performing Organization Address City/[facility] Phone Number [address] * ED ECG Interpretation (04/07/2018 11:18 PM CDT) Narrative Performed At Flora English MD 04/07/2018 11:18 PM ECG/EKG Interpretation Date/Time: 04/07/2018 11:44 AM Performed by: FLORA ENGLISH Authorized by: FLORA ENGLISH The ECG was interpreted by ED physician. This ECG was not compared with previous ECG(s).The ECG is interpreted as sinus rhythm. Rate is normal rate. Conduction: conduction normal. ST segments normal. T waves abnormal. [place] is normal. Other findings: no other findings. Clinical Impression: non-specific ECG and abnormal ECG * 2D Echo W/Doppler(CW/PW/Color) (04/07/2018 6:20 PM CDT) Ejection Fraction [facility] Narrative Performed At Transthoracic Echocardiography Report (TTE) [facility] Demographics [facility] Patient NameALJOAN VARGAS Date of Study04/07/2018 DIANE Male Visit [id number] Room [id number] Number Date of 1940Referring Physician Age 77 year(s)SonographerJomar Matthew Interpreting Physician WalterMD FellowJoaquin Pearce MD Procedure Type of Study TTE procedure:2DECHO W DOPPLER(CW/PW/COLOR) (STAT) Indications:Acute Chest Pain/ Suspected CAD. Clinical History HGB 8.9 HCT 28.0 % DM, HLD, HTN, ACB X3 03/27/18, PCI 03/23/18, SMOKER, HX OF [place], CAD, PVD, ATHEROSCLEROSIS OF AO Height: 64 inches Weight: 52.16 kg (115 lbs) BSA: 1.55 m^2 BMI: 19.74 kg/m^2 HR: 80 bpm BP: 159/61 mmHg Summary The left ventricle is chamber size (by vol index) is mildly enlarged (male - LVED 75-89ml/m2). LV septal thickness is mildly increased (1.2-1.4cm). LV posterior wall thickness is normal (0.6-1.1cm) . The following segment(s) appear akinetic: apex and apical septum The following segment(s) appear hypokinetic: basal, mid inferior . LVEF by Savage's method of disk assessment is ofzyet-md-rcnywaqjgn reduced (40%) . Grade 1 diastolic dysfunction (impaired relaxation and low-normal LA pressure). The pericardial effusion appears loculated . Pericardial effusion is seen around the posterior LV . Greatest pericardial end-diastolic size is approx. 7mm. Estimated peak systolic PA pressure is cannot be determined due to inadequate TR velocity signal . Signature Findings Rhythm/BPRegular sinus rhythm during the exam. Left Ventricle The LV endocardium is partially visualized. The left ventricle is chamber size (by vol index) is mildly enlarged (male - LVED 75-89ml/m2). LV septal thickness is mildly increased (1.2-1.4cm). LV posterior wall thickness is normal (0.6-1.1cm) . The following segment(s) appear akinetic: apex and apical septum The following segment(s) appear hypokinetic: basal, mid inferior . LVEF by Savage's method of disk assessment is rjfkon-ub-xornuhkthi reduced (40%) . Grade 1 diastolic dysfunction (impaired relaxation and low-normal LA pressure). Septal motion is abnormal, likely related to prior cardiac surgery . Left AtriumLA size is severely enlarged (>48 ml/m2) . Right VentricleThe right ventricular chamber size and systolic function are within normal limits. Right Atrium RA size is indeterminate (not well seen). Atrial SeptumThe interatrial septum is not well visualized. Aortic Valve Normal AoV structure and function. Mild AoV cusp thickening. Mitral Valve Normal MV structure and function. Tricuspid ValveTV structure is normal. Estimated peak systolic PA pressure is cannot be determined due to inadequate TR velocity signal . Pulmonic Valve Normal PV structure and function. AortaAortic root size (SInus of Valsalva diameter) is normal . Proximal ascending aorta size is not visualized . PericardiumThe pericardial effusion appears loculated . Pericardial effusion is seen around the posterior LV . Greatest pericardial end-diastolic size is approx. 7mm cm. IVC/SVC/PA/PV/PleuralThe inferior vena cava size is normal . The estimated RA pressure by IVC dynamics 5-10mmHg . Chambers/Structures Left Ventricle LVIDd: 4.71 cmLVEDV:85.59 ml LVIDs: 3.39 cm LV Septum Diastolic: 1.32 cm LV PW Diastolic: 1.06 cmLV Length: 8.76 cm LVEDV Savage's:115.65 ml LV FS: 28 % LVESV Savage's:65.77 ml LVEF Savage's: 43.1 %LVEDVI: 75 ml/m^2 LVESVI: 42 ml/m^2 LVOT Diameter: 2.01 cm Aorta Ao Root S of Shilpa.: 3.2 cm Doppler/Quantitative Measurements Mitral Valve MV Peak E-Wave: 0.81 m/sMV Peak A-Wave: 1.09 m/s E/A Ratio: 0.75 Peak Gradient: 2.64 mmHg Deceleration Time: 192.4 msec MV Isidro. Peak: Tissue Doppler E' Lateral Velocity: 0.07 m/s A' Lateral Velocity: 0.07 m/s E/E': 11.31 Aortic Valve Peak Velocity: 1.08 m/sMean Velocity: 0.67 m/s Peak Gradient: 4.63 mmHg Mean Gradient: 2.05 mmHg AV Area (continuity): 3.2 cm^2 AV VTI: 18.17 cm AV DVI: 1.01 LVOT Peak Velocity: 0.98 m/s Peak Gradient: 3.86 mmHg Mean Velocity: 0.65 m/s Mean Gradient: 1.89 mmHg LVOT Diameter: 2.01 cmLVOT VTI: 18.33 cm LVOT Area: 3.17 cm^2LVOT SV:58.13 ml LVOT CO: 4.65 l/min LVOT CI: 3 l/min/m^2 Tricuspid Valve TR Velocity: 2.68 m/s TR Gradient: 28.83 mmHg Procedure Note Interface, External Ris In - 04/07/2018 8:07 PM CDT Transthoracic Echocardiography Report (TTE) Demographics Patient Name JOAN MULLINS Date of Study 04/07/2018 DIANE Gender Male Visit Number [id number] Race Room Number [id number] Number Date of 1940 Referring Physician Age 77 year(s) Trust Officer Jomar Matthew Interpreting Daniel Marquez, Physician Fellow Joaquin Pearce MD Procedure Type of Study TTE procedure:2DECHO W DOPPLER(CW/PW/COLOR) (STAT) Indications:Acute Chest Pain/ Suspected CAD. Clinical History HGB 8.9 HCT 28.0 % DM, HLD, HTN, ACB X3 03/27/18, PCI 03/23/18, SMOKER, HX OF [place], CAD, PVD, ATHEROSCLEROSIS OF AO Height: 64 inches Weight: 52.16 kg (115 lbs) BSA: 1.55 m^2 BMI: 19.74 kg/m^2 HR: 80 bpm BP: 159/61 mmHg Summary The left ventricle is chamber size (by vol index) is mildly enlarged (male - LVED 75-89ml/m2). LV septal thickness is mildly increased (1.2-1.4cm). LV posterior wall thickness is normal (0.6-1.1cm) . The following segment(s) appear akinetic: apex and apical septum The following segment(s) appear hypokinetic: basal, mid inferior . LVEF by Savage's method of disk assessment is jghkxi-kj-albtrnkhse reduced (40%) . Grade 1 diastolic dysfunction (impaired relaxation and low-normal LA pressure). The pericardial effusion appears loculated . Pericardial effusion is seen around the posterior LV . Greatest pericardial end-diastolic size is approx. 7mm. Estimated peak systolic PA pressure is cannot be determined due to inadequate TR velocity signal . Signature Findings Rhythm/BP Regular sinus rhythm during the exam. Left Ventricle The LV endocardium is partially visualized. The left ventricle is chamber size (by vol index) is mildly enlarged (male - LVED 75-89ml/m2). LV septal thickness is mildly increased (1.2-1.4cm). LV posterior wall thickness is normal (0.6-1.1cm) . The following segment(s) appear akinetic: apex and apical septum The following segment(s) appear hypokinetic: basal, mid inferior . LVEF by Savage's method of disk assessment is hhfrhm-bz-vjjdqpqhqw reduced (40%) . Grade 1 diastolic dysfunction (impaired relaxation and low-normal LA pressure). Septal motion is abnormal, likely related to prior cardiac surgery . Left Atrium LA size is severely enlarged (>48 ml/m2) . Right Ventricle The right ventricular chamber size and systolic function are within normal limits. Right Atrium RA size is indeterminate (not well seen). Atrial Septum The interatrial septum is not well visualized. Aortic Valve Normal AoV structure and function. Mild AoV cusp thickening. Mitral Valve Normal MV structure and function. Tricuspid Valve TV structure is normal. Estimated peak systolic PA pressure is cannot be determined due to inadequate TR velocity signal . Pulmonic Valve Normal PV structure and function. Aorta Aortic root size (SInus of Valsalva diameter) is normal . Proximal ascending aorta size is not visualized . Pericardium The pericardial effusion appears loculated . Pericardial effusion is seen around the posterior LV . Greatest pericardial end-diastolic size is approx. 7mm cm. IVC/SVC/PA/PV/Pleural The inferior vena cava size is normal . The estimated RA pressure by IVC dynamics 5-10mmHg . Chambers/Structures Left Ventricle LVIDd: 4.71 cm LVEDV:85.59 ml LVIDs: 3.39 cm LV Septum Diastolic: 1.32 cm LV PW Diastolic: 1.06 cm LV Length: 8.76 cm LVEDV Savage's:115.65 ml LV FS: 28 % LVESV Savage's:65.77 ml LVEF Savage's: 43.1 % LVEDVI: 75 ml/m^2 LVESVI: 42 ml/m^2 LVOT Diameter: 2.01 cm Aorta Ao Root S of Shilpa.: 3.2 cm Doppler/Quantitative Measurements Mitral Valve MV Peak E-Wave: 0.81 m/s MV Peak A-Wave: 1.09 m/s E/A Ratio: 0.75 Peak Gradient: 2.64 mmHg Deceleration Time: 192.4 msec MV Isidro. Peak: Tissue Doppler E' Lateral Velocity: 0.07 m/s A' Lateral Velocity: 0.07 m/s E/E': 11.31 Aortic Valve Peak Velocity: 1.08 m/s Mean Velocity: 0.67 m/s Peak Gradient: 4.63 mmHg Mean Gradient: 2.05 mmHg AV Area (continuity): 3.2 cm^2 AV VTI: 18.17 cm AV DVI: 1.01 LVOT Peak Velocity: 0.98 m/s Peak Gradient: 3.86 mmHg Mean Velocity: 0.65 m/s Mean Gradient: 1.89 mmHg LVOT Diameter: 2.01 cm LVOT VTI: 18.33 cm LVOT Area: 3.17 cm^2 LVOT SV:58.13 ml LVOT CO: 4.65 l/min LVOT CI: 3 l/min/m^2 Tricuspid Valve TR Velocity: 2.68 m/s TR Gradient: 28.83 mmHg Performing Organization Address City/[facility] Phone Number [facility] * POC-Lactic Acid, Venous (04/07/2018 4:58 PM CDT) Only the most recent of 3 results within the time period is included. POC-Lactic Acid, Venous 1.6Comment: TESTED AT [facility] 0.9 - 1.7 mmol/L [address] Specimen Blood Performing Organization Address [facility] [place] [place] [address] [facility] * Urinalysis w/Microscopic + Reflex to Culture (04/07/2018 3:19 PM CDT) Color, UA Yellow [facility] Clarity, UA Clear [facility] Specific [place], UA 1.011 1.001 - 1.035 [facility] pH, UA 5.0 5.0 - 8.0 [facility] Protein, UA Negative Negative [facility] Glucose, UA 300 mg/dL (A) Negative [facility] Ketones, UA Negative Negative [facility] Bilirubin, UA Negative Negative [facility] Blood, UA Negative Negative [facility] Nitrite, UA Negative Negative [facility] Leukocytes, UA Negative Negative [facility] Urobilinogen, UA 0.2 0.2 - 1.0 mg/dL [facility] RBC, UA <1 /HPF [facility] WBC, UA 1 /HPF [facility] Bacteria, UA Rare [facility] Mucus Occasional [facility] Hyaline Casts, UA 1 /LPF [facility] Specimen Source [facility] Specimen Urine - Urine, Voided Performing Organization Address [facility] [place] [address] [phone] * Blood culture #2 (04/07/2018 12:07 PM CDT) Only the most recent of 2 results within the time period is included. Result No growth in 5 days [facility] Specimen Blood - Arm, Left Performing Organization Address [facility] Phone Number [address] * Procalcitonin (04/07/2018 12:06 PM CDT) Only the most recent of 3 results within the time period is included. Procalcitonin <0.05 <0.05 ng/mL [facility] Specimen Blood - Arm, Left Narrative Performed At SEPSIS RISK (ng/mL) [facility] Low:0.05-0.50 [facility] Intermediate: 0.51-2.00 High: >=2.01 Performing Organization Address [facility] [place] [address] [phone] [place] [address] * Troponin I (04/07/2018 12:06 PM CDT) Only the most recent of 8 results within the time period is included. Troponin I 11.60 (HH) 0.00 - 0.03 ng/mL [facility] Specimen Blood - Arm, Left Narrative Performed At Troponin I (TnI) levels must be interpreted in the context of the presenting [facility] symptoms and the clinical findings. Elevated TnI levels indicate myocardial [facility] damage, but are not specific for ischemic heart disease. Elevated TnI levels are seen in patients with other cardiac conditions (including myocarditis and congestive heart failure), and slight TnI elevations occur in patients with other conditions, including sepsis, renal failure, acidosis, acute neurological disease, and persistent tachyarrhythmia. Performing Organization Address [facility] [place] [address] [facility] * Prothrombin time/INR (04/07/2018 12:06 PM CDT) Only the most recent of 4 results within the time period is included. Protime 15.4 (H) 11.7 - 14.7 seconds [facility] INR 1.2 <=5.9 [facility] Specimen Blood - Arm, Left Narrative Performed At RECOMMENDED COUMADIN/WARFARIN INR THERAPY RANGES [facility] STANDARD DOSE: 2.0 - 3.0 Includes: PROPHYLAXIS for venous thrombosis, [facility] systemic embolization; TREATMENT for venous thrombosis and/or pulmonary embolus. HIGH RISK: Target INR is 2.5-3.5 for patients with mechanical heart valves. Performing Organization Address [facility] [place] [address] [phone] [place] [address] * B-type natriuretic peptide (04/07/2018 12:06 PM CDT) BNP 858 (H) 0 - 100 pg/mL [facility] Specimen Blood - Arm, Left Performing Organization Address [facility] Phone Number [address] [address] [facility] * Lipase (04/07/2018 12:06 PM CDT) Lipase 25 8 - 78 U/L [facility] Specimen Blood - Arm, Left Performing Organization Address [facility] Phone Number [address] [address] [facility] * Creatine Kinase (CK), Total and MB (not available at [facility] and [place]) (04/07/2018 12:06 PM CDT) Total CK 64 29 - 200 U/L [facility] CK-MB 3.9 0.0 - 6.6 ng/mL [facility] MB Relative Index 6.1 % [facility] Specimen Blood - Arm, Left Narrative Performed At CK-MB Reference Range: [facility] <6.7Normal [facility] 6.7-10.0Borderline >10.0 Abnormal Performing Organization Address City/[facility] Phone Number [address] [address] [facility] * Amylase (04/07/2018 12:06 PM CDT) Amylase 31 25 - 125 U/L [facility] Specimen Blood - Arm, Left Performing Organization Address [facility] Phone Number [address] [address] [facility] * Hepatic function panel (04/07/2018 12:06 PM CDT) Only the most recent of 2 results within the time period is included. Protein, Total 5.9 (L) 6.0 - 8.3 gm/dL [facility] Albumin 2.9 (L) 3.5 - 5.0 g/dL [facility] Total Bilirubin 0.7 0.2 - 1.2 mg/dL [facility] Bilirubin, Direct 0.4 0.1 - 0.5 mg/dL [facility] Alkaline Phosphatase 69 40 - 150 U/L [facility] AST 19 5 - 34 U/L [facility] ALT 18 6 - 55 U/L [facility] Specimen Blood - Arm, Left Performing Organization Address [facility] Phone Number [address] [place] [address] [facility] * XR chest 1 view portable / bedside (04/07/2018 11:55 AM CDT) Only the most recent of 13 results within the time period is included. Narrative Performed At FINAL REPORT GE RIS Chest, AP view. History: Abdominal pain. Comparison: 04/01/2018. Discussion: Cardiomegaly. The lungs are clear without evidence of consolidation or effusion.There are no acute osseous abnormalities. Status post medial sternotomy. Skin lana project over the midline near IMPRESSION: No acute cardiopulmonary abnormality. Signed: Edel Reno MD Report Verified Date/Time:04/07/2018 12:21:57 Reading Location: [address] Radiology Reading Room Procedure Note Interface, External Ris In - 04/07/2018 12:24 PM CDT FINAL REPORT Chest, AP view. History: Abdominal pain. Comparison: 04/01/2018. Discussion: Cardiomegaly. The lungs are clear without evidence of consolidation or effusion. There are no acute osseous abnormalities. Status post medial sternotomy. Skin lana project over the midline near IMPRESSION: No acute cardiopulmonary abnormality. Signed: Edel Reno MD Report Verified Date/Time: 04/07/2018 12:21:57 Reading Location: [address] Radiology Reading Room Performing Organization Address City/State/Zipcode Phone Number GE RIS * EKG 12 lead (04/07/2018 11:33 AM CDT) Only the most recent of 5 results within the time period is included. Narrative Performed At Ventricular Rate 75 BPM GE MUSE Atrial Rate 75 BPM P-R Interval 150 ms QRS Duration 96 ms Q-T Interval 448 ms QTC Calculation(Bazett) 500 ms P Granby 82 degrees R Granby -24 degrees T Granby 109 degrees Normal sinus rhythm Low voltage QRS ST & Marked T wave abnormality, consider anterolateral ischemia Prolonged QT Abnormal ECG When compared with ECG of 28-MAR-2018 06:17, Criteria for Septal infarct are no longer Present Criteria for Inferior infarct are no longer Present T wave inversion now evident in Anterior leads QT has lengthened Confirmed by NAVARIJO, MD, DANIEL P ([id number]) on 04/07/2018 2:52:15 PM Procedure Note Interface, External Ris In - 04/07/2018 2:52 PM CDT Ventricular Rate 75 BPM Atrial Rate 75 BPM P-R Interval 150 ms QRS Duration 96 ms Q-T Interval 448 ms QTC Calculation(Bazett) 500 ms P Granby 82 degrees R Granby -24 degrees T [place] 109 degrees Normal sinus rhythm Low voltage QRS ST & Marked T wave abnormality, consider anterolateral ischemia Prolonged QT Abnormal ECG When compared with ECG of 28-MAR-2018 06:17, Criteria for Septal infarct are no longer Present Criteria for Inferior infarct are no longer Present T wave inversion now evident in Anterior leads QT has lengthened Confirmed by MD MARQUEZ JOSEPH P ([id number]) on 04/07/2018 2:52:15 PM Performing Organization Address City/[facility] Phone Number [employer] MUSE * CARDIAC CATH REPORT - SCAN (04/04/2018 11:00 AM CDT) Narrative Performed At * Calcium, Ionized (03/30/2018 4:25 AM CDT) Only the most recent of 8 results within the time period is included. Calcium, Ion 1.08 (L) 1.12 - 1.27 mmol/L [facility] pH, Blood 7.35 [facility] Specimen Blood Performing Organization Address [facility] Phone Number [facility] [address] [place] [address] MEDICAL CENTER * TRANSFUSION SERVICE REPORT - SCAN (03/29/2018 6:02 PM CDT) Only the most recent of 4 results within the time period is included. Narrative Performed At * Manual Differential (03/29/2018 4:00 AM CDT) Only the most recent of 3 results within the time period is included. % Neutros 65 % [facility] % Lymphs 7 % [facility] % Monos 9 % [facility] % Bands 19 (H) 0 - 10 % [facility] # Neutros 11.96 (H) 1.78 - 5.38 K/ul [facility] # Lymphs 1.29 (L) 1.32 - 3.57 K/ul [facility] # Monos 1.66 (H) 0.30 - 0.82 K/uL [facility] # Bands 3.50 (H) 0.00 - 0.80 K/uL [facility] Total Counted 100 [facility] WBC Morphology Normal [facility] Platelet Morphology Normal [facility] Polychromasia 1+ few [facility] Anisocytosis 1+ few [facility] Artifact Present [facility] Platelet Conc Decreased [facility] Specimen Blood Narrative Performed At Received comment: [facility] User comments: [facility] Slide comments: Performing Organization Address City/[facility] Phone Number [address] * Phosphorus (03/29/2018 4:00 AM CDT) Only the most recent of 4 results within the time period is included. Phosphorus 3.4 2.3 - 4.7 mg/dL [facility] Specimen Blood Performing Organization Address City/[facility] Phone Number [facility] [address] [place] [address] * Prepare PLT (03/28/2018 11:54 PM CDT) Unit ABO O Neg [place] UNIT NUMBER [id number] [place] Status TRANSFUSED S[facility]ET[place] Blood Bank Product PLATELETS SAFET[place]ACE [place] PRODUCT CODE [id number] SAFETRACE [place] Performing Organization Address [facility] Phone Number [employer] [place] * Prepare RBC (03/28/2018 11:54 PM CDT) CROSSMATCH COMPATIBLE SAFET[place]ACE TX Unit ABO A Neg [place] UNIT NUMBER [id number] [place]ET[place] TX Status TRANSFUSED SAFETRACE TX Blood Bank Product RED BLOOD CELLS SAFETRACE TX PRODUCT CODE [id number] SAFETRACE TX CROSSMATCH COMPATIBLE SAFETRACE TX Unit ABO A Neg SAFETRACE TX UNIT NUMBER [id number] SAFETRACE TX Status RETURNED FROM ISSUE SAFETRACE TX Blood Bank Product RED BLOOD CELLS SAFETRACE TX PRODUCT CODE [id number] SAFETRACE TX CROSSMATCH COMPATIBLE SAFETRACE TX Unit ABO A Neg SAFETRACE TX UNIT NUMBER [id number] SAFETRACE TX Status RETURNED FROM ISSUE SAFETRACE TX Blood Bank Product RED BLOOD CELLS SAFETRACE TX PRODUCT CODE [id number] SAFETRACE TX CROSSMATCH COMPATIBLE SAFETRACE TX Unit ABO A Neg SAFETRACE TX UNIT NUMBER [id number] SAFETRACE TX Status RETURNED FROM ISSUE SAFETRACE [place] Blood Bank Product RED BLOOD CELLS SAFET[place]ACE [place] PRODUCT CODE [id number] SAFET[place]ACE [place] Performing Organization Address [facility] Phone Number [employer] [place] * Oxygen saturation, measured (03/28/2018 8:41 PM CDT) Only the most recent of 7 results within the time period is included. O2 Saturation (Measured) 98.7 % [facility] Specimen Blood Performing Organization Address [facility] Phone Number [address] [address] [phone] * Potassium (03/28/2018 4:56 PM CDT) Only the most recent of 7 results within the time period is included. Potassium 4.9 3.5 - 5.1 meq/L [facility] Specimen Blood Narrative Performed At PRN - repeat glucose levels every 1 hour or as specified by insulin titration [facility] orders until glucose level is less than 450 mg/dL [facility] PRN - repeat potassium levels every 1 hour until glucose level is less than 450 mg/dL Performing Organization Address [facility] Phone Number [address] [address] [facility] * Glucose (03/28/2018 4:56 PM CDT) Only the most recent of 4 results within the time period is included. Glucose 139 (H) 70 - 105 mg/dL [facility] Specimen Blood Narrative Performed At PRN - repeat glucose levels every 1 hour or as specified by insulin titration [facility] orders until glucose level is less than 450 mg/dL [facility] PRN - repeat potassium levels every 1 hour until glucose level is less than 450 mg/dL Performing Organization Address [facility] Phone Number [address] [address] [facility] * Blood gas, arterial (03/28/2018 4:56 PM CDT) Only the most recent of 13 results within the time period is included. pH, Arterial 7.42 7.35 - 7.45 [facility] pCO2, Arterial 42 35 - 45 mmHg [facility] pO2, Arterial 180 (H) 80 - 90 mmHg [facility] O2 Sat, Arterial 99.2 (H) 96.0 - 97.0 % [facility] HCO3, Arterial 27 21 - 29 mmol/L [facility] Base Excess, Arterial 2.1 -2.0 - 3.0 mmol/L [facility] Patient Temperature 37.6 C [facility] FIO2 32.0 % [facility] Specimen Blood, Arterial Performing Organization Address [facility] Phone Number [address] [address] [facility] * Potassium-Stat Lab (03/28/2018 9:39 AM CDT) Only the most recent of 9 results within the time period is included. Potassium 4.6 3.6 - 5.5 meq/L [facility] Specimen Blood, Arterial Performing Organization Address City/[facility] Phone Number [facility] * Sodium Na-Stat Lab (03/28/2018 9:39 AM CDT) Only the most recent of 7 results within the time period is included. Sodium 130 (L) 135 - 148 meq/L [facility] Specimen Blood, Arterial Performing Organization Address [facility] Phone Number [address] * Glucose-Stat Lab (03/28/2018 9:39 AM CDT) Only the most recent of 9 results within the time period is included. Glucose 128 (H) 70 - 110 mg/dL [facility] Specimen Blood, Arterial Performing Organization Address [facility] Phone Number [address] * HGB/HCT (H&H)-Stat Lab (03/28/2018 9:39 AM CDT) Only the most recent of 9 results within the time period is included. Hemoglobin 8.8 (L) 13.0 - 16.8 g/dL [facility] Hematocrit 26.0 (L) 40.0 - 50.0 % [facility] Specimen Blood, Arterial Performing Organization Address [facility] Phone Number [address] * Lactic acid, arterial, whole blood (03/28/2018 9:35 AM CDT) Only the most recent of 7 results within the time period is included. Lactate, Art 1.8 0.5 - 2.2 mmol/L [facility] Specimen Blood, Arterial Narrative Performed At Effective 10/22/2015: Units/Reference Range Change [facility] New: 0.5-2.2 mmol/LPrevious: 5-20 mg/dL [facility] Performing Organization Address [facility]/Zipcode Phone Number [address] * Sodium (03/27/2018 2:30 PM CDT) Sodium 131 (L) 136 - 145 meq/L [facility] Specimen Blood Performing Organization Address [facility] Phone Number [address] * Platelet count (03/27/2018 1:04 PM CDT) Platelets 89 (L) 150 - 450 K/CU MM [facility] Specimen Blood Performing Organization Address [facility] Phone Number [address] * Thromboelastograph (TEG) (03/27/2018 1:02 PM CDT) TEG Activated Clotting 5.6 4.0 - 7.0 minutes [facility] TEG Fibrinogen Activity 64.3 61.0 - 73.0 degrees [facility] TEG Platelet Aggregation 47.2 (L) 55.0 - 65.0 MM [facility] TEG-H Activated Clotting 5.4 4.0 - 7.0 minutes [facility] TEG-H Fibrinogen Activity 66.6 61.0 - 73.0 degrees [facility] TEG-H Platelet 54.0 (L) 55.0 - 65.0 MM [facility] Aggregation [facility] Specimen Blood Performing Organization Address [facility] Phone Number [address] * ANESTHESIA JOSÉ LUIS (03/27/2018 12:45 PM CDT) Narrative Performed At Brittani Schuster MD 03/27/2018 12:45 PM JOSÉ LUIS Date: 03/27/2018 10:22 AM Sex: Male Location: OR Examiner: DONNA ZACARIAS KATHERINE L. IntubatedSedated Patient screened for esoph disease: Yes Insertion: easy Modalities: 2D, CFM, CWD and PWD Pre Intervention Summary: Aorta: No aneurysm, no dissection, no mobile plaques. IABP tip visualized 2cm proximal to left subclavian takeoff. AV: trileaflet morphology, no aortic stenosis, no aortic regurgitation LV: normal chamber size , mild LVH, moderately reduced systolic function (EF 30% by Savage's), akinesis septal wall, global hypokinesis otherwise, no thrombus MV: normal morphology, trace mitral regurgitation, no mitral stenosis LA: no MICHAEL thrombus, normal size and function PV: limited visualization RV: normal sized chamber, normal function, no thrombus TV: normal morphology, trace tricuspid regurgitation RA: no thrombus No PFO by color dopper flow All findings communicated to surgical team. Post Intervention Summary:S/P ACB x3. Improved LV systolic function. Preserved RV function. No new valvular abnormalities. No aortic dissection. Procedure Note Brittani Schuster MD - 03/27/2018 10:22 AM CDT JOSÉ LUIS Date: 03/27/2018 10:22 AM Sex: Male Location: OR Examiner: DONNA ZACARIAS KATHERINE L. Intubated Sedated Patient screened for esoph disease: Yes Insertion: easy Modalities: 2D, CFM, CWD and PWD Pre Intervention Summary: Aorta: No aneurysm, no dissection, no mobile plaques. IABP tip visualized 2cm proximal to left subclavian takeoff. AV: trileaflet morphology, no aortic stenosis, no aortic regurgitation LV: normal chamber size , mild LVH, moderately reduced systolic function (EF 30% by Savage's), akinesis septal wall, global hypokinesis otherwise, no thrombus MV: normal morphology, trace mitral regurgitation, no mitral stenosis LA: no MICHAEL thrombus, normal size and function PV: limited visualization RV: normal sized chamber, normal function, no thrombus TV: normal morphology, trace tricuspid regurgitation RA: no thrombus No PFO by color dopper flow All findings communicated to surgical team. Post Intervention Summary: S/P ACB x3. Improved LV systolic function. Preserved RV function. No new valvular abnormalities. No aortic dissection. * Type and screen, automated (03/26/2018 4:07 PM CDT) Only the most recent of 2 results within the time period is included. ABO/RH AUTOMATED (BEAKER) AB NEGATIVE [facility] Ab Scrn NEGATIVE [facility] Specimen Blood - Arm, Right Performing Organization Address City/[facility] Phone Number [facility] [address] [place] [address] [facility] * Heparin antibody (03/26/2018 4:07 PM CDT) Heparin Ab Negative Negative [facility] Heparin Antibody Optical 0.073 <0.400 [facility] Density [facility] 4T Total Score 5 [facility] Specimen Blood - Arm, Right Narrative Performed At Probability of HIT based on scoring system: [facility] 6-8=High probability; 4-5=intermediate probability; 0-3=low probability [facility] Performing Organization Address City/[facility] Phone Number [address] [address] [facility] * Carotid doppler unilateral (03/26/2018 12:30 PM CDT) Ejection Fraction [facility] Impressions Performed At Right Impression [facility] 1. There is <50% diameter reduction (approximately 44 % by 2-D measurement) [facility] in the internal carotid artery with a peak velocity of 124/48 cm/sec and heterogeneous plaque. 2. There is stenosis in the external carotid artery. 3. There is non-occluding plaque in the common carotid artery. 4. The vertebral artery flow is antegrade. 5. The subclavian artery is patent where visualized. Left Impression 1. Not ordered. Conclusions Summary Carotid duplex scanning and color flow imaging were performed on the right. The arteries were adequately visualized. The right internal carotid artery had <50% hemodynamically insignificant stenosis (approximately 44% by 2-D measurement) with heterogeneous plaque. The vertebral artery flow was antegrade. Signature Velocities are measured in cm/s ; Diameters are measured in cm Carotid Right Measurements + +----+----+-----+ + + + !Location !PSV !EDV !Angle!%Stenosis 2D!%Stenosis Doppler!Tortuosity ! + +----+----+-----+ + + + !Prox CCA !88!!60 !! ! ! + +----+----+-----+ + + + !Dist CCA !82.5!!60 !! ! ! + +----+----+-----+ + + + !Prox ICA !124 !48.5!60 !! ! ! + +----+----+-----+ + + + !Dist ICA !160 !!60 !! ! ! + +----+----+-----+ + + + !Prox ECA !171 !!60 !! ! ! + +----+----+-----+ + + + !Vertebral!78.6!19.6!60 !! ! ! + +----+----+-----+ + + + !Prox Subclavian!178 !!60 !! ! ! + +----+----+-----+ + + + - Additional Measurements:ICAPSV/CCAPSV 1.94. Narrative Performed At LAB - Carotid Duplex Study [facility] Demographics [facility] Patient BettieGUANAKITO MULLINSGeovanna of Study 03/26/2018 DIANE Age 77 Visit [id number] GenderMale Date of 1940 Number Referring Jamal Raoom Number [id number] Physician [employer] Officer Lori DiasJ. Nolberto Chisholm RN, Chelsey PURCELL, RPVI Procedure Type of Study: Cerebral: Carotid, CAROTID DOPPLER, UNILATERAL. Indications for Study:Pre-Op Heart Bypass Surgery. Patient Status:TODAY. Study Location:Portable. Technical Quality:Adequate visualization. - Results were reported to:Dr Alvarez @ 0002. Risk Factors History of Disease + + + + !Diagnosis !Date!Comments ! + + + + !History/Risk Factors: !03/24/2018!Cardiac disease ! !!!PVD ! !!!S/P IABP via right groin! !!!Right side neck invasive lines! !!!Hyperglyc emia ! + + + + Procedure Note Interface, External Ris In - 03/26/2018 4:09 PM CDT PV LAB - Carotid Duplex Study Demographics Patient Name JOAN MULLINS Date of Study 03/26/2018 DIANE Age 77 Visit Number [id number] Gender Male Date of 1940 Number Referring Jamal Pearson Room Number [id number] Physician [employer] Lori hCisholm RN, RVT Physician , RPVI Procedure Type of Study: Cerebral: Carotid, CAROTID DOPPLER, UNILATERAL. Indications for Study:Pre-Op Heart Bypass Surgery. Patient Status:TODAY. Study Location:Portable. Technical Quality:Adequate visualization. - Results were reported to:Dr Alvarez @ 1200. Risk Factors History of Disease + + + + !Diagnosis !Date !Comments ! + + + + !History/Risk Factors: !03/24/2018!Cardiac disease ! ! ! !PVD ! ! ! !S/P IABP via right groin ! ! ! !Right side neck invasive lines ! ! ! !Hyperglycemia ! + + + + Impressions Right Impression 1. There is <50% diameter reduction (approximately 44 % by 2-D measurement) in the internal carotid artery with a peak velocity of 124/48 cm/sec and heterogeneous plaque. 2. There is stenosis in the external carotid artery. 3. There is non-occluding plaque in the common carotid artery. 4. The vertebral artery flow is antegrade. 5. The subclavian artery is patent where visualized. Left Impression 1. Not ordered. Conclusions Summary Carotid duplex scanning and color flow imaging were performed on the right. The arteries were adequately visualized. The right internal carotid artery had <50% hemodynamically insignificant stenosis (approximately 44% by 2-D measurement) with heterogeneous plaque. The vertebral artery flow was antegrade. Signature Velocities are measured in cm/s ; Diameters are measured in cm Carotid Right Measurements + +----+----+-----+ + + + !Location !PSV !EDV !Angle!%Stenosis 2D!%Stenosis Doppler!Tortuosity ! + +----+----+-----+ + + + !Prox CCA !88 ! !60 ! ! ! ! + +----+----+-----+ + + + !Dist CCA !82.5! !60 ! ! ! ! + +----+----+-----+ + + + !Prox ICA !124 !48.5!60 ! ! ! ! + +----+----+-----+ + + + !Dist ICA !160 ! !60 ! ! ! ! + +----+----+-----+ + + + !Prox ECA !171 ! !60 ! ! ! ! + +----+----+-----+ + + + !Vertebral !78.6!19.6!60 ! ! ! ! + +----+----+-----+ + + + !Prox Subclavian!178 ! !60 ! ! ! ! + +----+----+-----+ + + + - Additional Measurements:ICAPSV/CCAPSV 1.94. Performing Organization Address City/State/Zipcode Phone Number [facility] * Vancomycin level, trough (03/26/2018 10:25 AM CDT) Vancomycin Tr 3.5 (L) 10.0 - 20.0 ug/mL [facility] Specimen Blood - Arm, Right Performing Organization Address City/State/Zipcode Phone Number [facility] [address], [place] [id number] [facility] * Vein Mapping Legs Bilateral (03/24/2018 7:15 PM CDT) Ejection Fraction [facility] Impressions Performed At Right Impression [facility] 1. There is no deep venous venous obstruction in the profunda femoral, [facility] femoral, posterior tibial or peroneal veins. 2. The common femoral and popliteal veins are not visualized. 3. There is no superficial venous obstruction in the great saphenous vein. 4. Superficial vein measurements documented below. Left Impression 1. There is no deep venous obstruction in the common femoral, profunda femoral, femoral, popliteal, posterior tibial or peroneal veins. 2. There is no superficial venous obstruction in the great saphenous vein. Conclusions Summary Venous duplex imaging and compression of the bilateral lower extremities was performed. The veins were difficult to visualize on the right due to IABP placement. The bilateral venous systems were patent and compressible with no evidence of thrombus where visualized. Venous Doppler waveforms were consistent with IABP placement. Superficial venous measurements are documented below. Signature Velocities are measured in cm/s ; Diameters are measured in cm LE Vein Mapping Superficial - Great Saphenous Vein Right Left + + + + + + + + !Location ! !Diameter!Depth ! !Diameter!Depth ! + + + + + + + + !GSV High Thigh ! !0.29! ! !0.37! ! + + + + + + + + !GSV Mid Thigh ! !0.27! ! !0.28! ! + + + + + + + + !GSV Low Thigh ! !0.12! ! !0.2 ! ! + + + + + + + + !GSV High Calf ! !0.32! ! !0.2 ! ! + + + + + + + + !GSV Mid Calf ! !0.27! ! !0.2 ! ! + + + + + + + + !GSV Low Calf ! !0.3 ! ! + + + + + Narrative Performed At PV LAB - Lower Extremities Vein Mapping [facility] Demographics [facility] Patient Name Lei MULLINS of Study 03/24/2018 DIANE [id number] Age 77 Visit Number [id number] GenderMale Accession Number [id number] [facility] 1940 [facility] Negrita AshrafJ. Chelsey Mckinney MD, [facility] Procedure Type of Study: Veins: Lower Extremity Vein Mapping, VEIN MAPPING, LOWER EXTREMITY, BILATERAL. Indications for Study:Assess for vein harvest for CABG . Patient Status:TODAY. Study Location:Portable. Technical Quality:Technically Difficult. Risk Factors History of Disease + + + + !Diagnosis !Date!Comments ! + + + + !History/Risk Factors: !03/24/2018!Cardiac disease ! !!!PVD ! !!!S/P IABP via right groin! !!!Right side neck invasive lines! !!!Hyperglyc emia ! + + + + Procedure Note Interface, External Ris In - 03/25/2018 7:03 AM CDT PV LAB - Lower Extremities Vein Mapping Demographics Patient Name JOAN MULLINS Date of Study 03/24/2018 DIANE Age 77 Visit Number [id number] Gender Male Accession Number [id number] Date of 1940 Referring Delonte Soliz Room Number C832 Physician Neil Trust Officer Jasmyne Benites Interpreting Leia Chisholm T Physician , [facility] Procedure Type of Study: Veins: Lower Extremity Vein Mapping, VEIN MAPPING, LOWER EXTREMITY, BILATERAL. Indications for Study:Assess for vein harvest for CABG . Patient Status:TODAY. Study Location:Portable. Technical Quality:Technically Difficult. Risk Factors History of Disease + + + + !Diagnosis !Date !Comments ! + + + + !History/Risk Factors: !03/24/2018!Cardiac disease ! ! ! !PVD ! ! ! !S/P IABP via right groin ! ! ! !Right side neck invasive lines ! ! ! !Hyperglycemia ! + + + + Impressions Right Impression 1. There is no deep venous venous obstruction in the profunda femoral, femoral, posterior tibial or peroneal veins. 2. The common femoral and popliteal veins are not visualized. 3. There is no superficial venous obstruction in the great saphenous vein. 4. Superficial vein measurements documented below. Left Impression 1. There is no deep venous obstruction in the common femoral, profunda femoral, femoral, popliteal, posterior tibial or peroneal veins. 2. There is no superficial venous obstruction in the great saphenous vein. Conclusions Summary Venous duplex imaging and compression of the bilateral lower extremities was performed. The veins were difficult to visualize on the right due to IABP placement. The bilateral venous systems were patent and compressible with no evidence of thrombus where visualized. Venous Doppler waveforms were consistent with IABP placement. Superficial venous measurements are documented below. Signature Velocities are measured in cm/s ; Diameters are measured in cm LE Vein Mapping Superficial - Great Saphenous Vein Right Left + + + + + + + + !Location ! !Diameter !Depth ! !Diameter !Depth ! + + + + + + + + !GSV High Thigh ! !0.29 ! ! !0.37 ! ! + + + + + + + + !GSV Mid Thigh ! !0.27 ! ! !0.28 ! ! + + + + + + + + !GSV Low Thigh ! !0.12 ! ! !0.2 ! ! + + + + + + + + !GSV High Calf ! !0.32 ! ! !0.2 ! ! + + + + + + + + !GSV Mid Calf ! !0.27 ! ! !0.2 ! ! + + + + + + + + !GSV Low Calf ! !0.3 ! ! + + + + + Performing Organization Address City/State/Zipcode Phone Number [facility] * Carotid doppler bilateral (03/24/2018 6:40 PM CDT) Ejection Fraction [facility] Impressions Performed At Right Impression [facility] 1. Not visualized due to invasive lines. [facility] Left Impression 1. There is 70-99% diameter reduction (approximately 92% by 2-D measurement) in the internal carotid artery with heterogeneous plaque, a peak velocity of 465/107cm/sec and an ICA/CCA peak systolic velocity ratio of 5.47. 2. There is non-occluding plaque in the external carotid artery. 3. There is non-occluding plaque in the common carotid artery. 4. The vertebral artery flow is antegrade . Conclusions Summary Carotid duplex scanning and color flow imaging were performed bilaterally. The right carotid arterial system was not visualized due to invasive lines. The arteries were adequately visualized on the left. The left internal carotid artery had 70-99% hemodynamically significant stenosis (approximately 92% by 2-D measurement) with heterogeneous/homogenous plaque. The left vertebral artery flow was antegrade. The waveforms were consistent with IABP support. Signature Velocities are measured in cm/s ; Diameters are measured in cm Carotid Left Measurements + +----+----+-----+ + + + !Location !PSV !EDV !Angle!%Stenosis 2D!%Stenosis Doppler!Tortuosity ! + +----+----+-----+ + + + !Prox CCA !68!9.97!60 !! ! ! + +----+----+-----+ + + + !Dist CCA !85!!60 !! ! ! + +----+----+-----+ + + + !Prox ICA !465 !107 !60 !92% !70-99% ! ! + +----+----+-----+ + + + !Dist ICA !212 !29.9!60 !! ! ! + +----+----+-----+ + + + !Prox ECA !249 !!60 !! ! ! + +----+----+-----+ + + + !Vertebral!79.6!16.7!60 !! ! ! + +----+----+-----+ + + + !Prox Subclavian!114 !!60 !! ! ! + +----+----+-----+ + + + - There is antegrade vertebral flow noted on the left side. - Additional Measurements:ICAPSV/CCAPSV 5.47.ICAEDV/CCAEDV 10.73. Narrative Performed At LAB - Carotid Duplex Study [facility] Demographics [facility] Patient Name Lei MULLINS of Study 03/24/2018 DIANE [id number] Age 77 Visit Number [id number] GenderMale Accession Number [id number] [facility] 1940 [facility] Ashraf. Chelsey Mckinney MD, VI Procedure Type of Study: Cerebral: Carotid, CAROTID DOPPLER, BILATERAL. Indications for Study:Pre-op evaluation. Patient Status:TODAY. Study Location:Portable. Technical Quality:Technically Difficult. - Results were reported to:Dexter Javier NP via ANDRE Mclean @ 19:15. Risk Factors History of Disease + + + + !Diagnosis !Date!Comments ! + + + + !History/Risk Factors: !03/24/2018!Cardiac disease ! !!!PVD ! !!!S/P IABP via right groin! !!!Right side neck invasive lines! !!!Hyperglyc emia ! + + + + Procedure Note Interface, External Ris In - 03/25/2018 7:04 AM CDT PV LAB - Carotid Duplex Study Demographics Patient Name JOAN MULLINS Date of Study 03/24/2018 DIANE Age 77 Visit Number [id number] Gender Male Accession Number [id number] Date of 1940 Referring Delonte Soliz Room Number C832 Physician Neil Trust Officer Jasmyne Chisholm T Physician , [facility] Procedure Type of Study: Cerebral: Carotid, CAROTID DOPPLER, BILATERAL. Indications for Study:Pre-op evaluation. Patient Status:TODAY. Study Location:Portable. Technical Quality:Technically Difficult. - Results were reported to:Dexter Javier NP via ANDRE Mclean @ 19:15. Risk Factors History of Disease + + + + !Diagnosis !Date !Comments ! + + + + !History/Risk Factors: !03/24/2018!Cardiac disease ! ! ! !PVD ! ! ! !S/P IABP via right groin ! ! ! !Right side neck invasive lines ! ! ! !Hyperglycemia ! + + + + Impressions Right Impression 1. Not visualized due to invasive lines. Left Impression 1. There is 70-99% diameter reduction (approximately 92% by 2-D measurement) in the internal carotid artery with heterogeneous plaque, a peak velocity of 465/107cm/sec and an ICA/CCA peak systolic velocity ratio of 5.47. 2. There is non-occluding plaque in the external carotid artery. 3. There is non-occluding plaque in the common carotid artery. 4. The vertebral artery flow is antegrade . Conclusions Summary Carotid duplex scanning and color flow imaging were performed bilaterally. The right carotid arterial system was not visualized due to invasive lines. The arteries were adequately visualized on the left. The left internal carotid artery had 70-99% hemodynamically significant stenosis (approximately 92% by 2-D measurement) with heterogeneous/homogenous plaque. The left vertebral artery flow was antegrade. The waveforms were consistent with IABP support. Signature Velocities are measured in cm/s ; Diameters are measured in cm Carotid Left Measurements + +----+----+-----+ + + + !Location !PSV !EDV !Angle!%Stenosis 2D!%Stenosis Doppler!Tortuosity ! + +----+----+-----+ + + + !Prox CCA !68 !9.97!60 ! ! ! ! + +----+----+-----+ + + + !Dist CCA !85 ! !60 ! ! ! ! + +----+----+-----+ + + + !Prox ICA !465 !107 !60 !92% !70-99% ! ! + +----+----+-----+ + + + !Dist ICA !212 !29.9!60 ! ! ! ! + +----+----+-----+ + + + !Prox ECA !249 ! !60 ! ! ! ! + +----+----+-----+ + + + !Vertebral !79.6!16.7!60 ! ! ! ! + +----+----+-----+ + + + !Prox Subclavian!114 ! !60 ! ! ! ! + +----+----+-----+ + + + - There is antegrade vertebral flow noted on the left side. - Additional Measurements:ICAPSV/CCAPSV 5.47.ICAEDV/CCAEDV 10.73. Performing Organization Address City/State/[facility] Phone Number [facility] * XR abdomen / KUB 1 view (03/24/2018 4:12 PM CDT) Narrative Performed At FINAL REPORT [facility] Abdomen one view INDICATION: Nausea/vomiting COMPARISON: None available IMPRESSION: Two frontal images of the abdomen are provided. There is moderate retained colonic feces. The bowel gas pattern is otherwise nonspecific. Free air and fluid levels are not well assessed on a supine study. There is contrast residue in the urinary bladder. A right femoral approach sheath is in place with a radiopaque marker for an IABP overlying the inferior L2 vertebral body. There are degenerative spine changes and incidental vascular calcifications. The imaged chest is similar to earlier today. Signed: Sravanthi Galindo MD Report Verified Date/Time:03/24/2018 16:21:12 Reading Location: [facility] C013 Consult Reading Room Procedure Note Interface, External Ris In - 03/24/2018 4:25 PM CDT FINAL REPORT Abdomen one view INDICATION: Nausea/vomiting COMPARISON: None available IMPRESSION: Two frontal images of the abdomen are provided. There is moderate retained colonic feces. The bowel gas pattern is otherwise nonspecific. Free air and fluid levels are not well assessed on a supine study. There is contrast residue in the urinary bladder. A right femoral approach sheath is in place with a radiopaque marker for an IABP overlying the inferior L2 vertebral body. There are degenerative spine changes and incidental vascular calcifications. The imaged chest is similar to earlier today. Signed: Sravanthi Galindo MD Report Verified Date/Time: 03/24/2018 16:21:12 Reading Location: [facility] C0[facility] Consult Reading Room Performing Organization Address City/State/Zipcode Phone Number RIS * Blood gas, venous (03/24/2018 2:55 PM CDT) Only the most recent of 2 results within the time period is included. pH, Luis 7.38 7.32 - 7.42 [facility] pCO2, Luis 46 41 - 51 mmHg [facility] pO2, Luis 30 25 - 40 mmHg [facility] O2 Sat, Luis 53.6 40.0 - 70.0 % [facility] HCO3, Luis 27 21 - 29 mmol/L [facility] Base Excess, Luis 1.3 -2.0 - 3.0 mmol/L [facility] Patient Temperature 37.5 C [facility] FIO2 100.0 % [facility] Specimen Blood - Central Venous Line Performing Organization Address City/State/Zipcode Phone Number [facility] [address] [place] [address] MEDICAL CENTER * 2D Echo W/Doppler(CW/PW/Color) (03/24/2018 12:03 PM CDT) Ejection Fraction [facility] Narrative Performed At Transthoracic Echocardiography Report (TTE) [facility] Demographics [facility] Patient Name Lei MULLINS of Study 03/24/2018 DIANE [id number] GenderMale Visit Number [id number] RaceUnknown [id number] Number [id number] Number Date of1940 Referring Physician Age77 year(s) Trust Officer NEWTON Murphy, RDCS,RVT,RDMS InterpretingRaallan Reina MD Physician Fellow KENZIE Whittington Procedure Type of Study TTE procedure:2DECHO W DOPPLER(CW/PW/COLOR) (STAT) Indications:Myocardial infarction. Clinical History LAD, IABP, CAD, STEMI Height: 64 inches Weight: 54.43 kg (120 lbs) BSA: 1.57 m^2 BMI: 20.6 kg/m^2 HR: 90 bpm BP: 138/71 mmHg Summary The left ventricle is chamber size (by vol index) is normal (male - LVED vol - 34-74ml/m2). Mild basal septal hypertrophy is present. The following segment(s) appear akinetic: mid-distal septum and apex and basal inferior ocampo. The anterior wall is severely hypokinetic. The basal septum and lateral ocampo contract normally. Global LV systolic function bqva-lk-snbjfrqdzo reduced . LVEF by Savage's method of disk assessment is xrvlgd-cc-blfxlfsufu reduced (40%) . Grade 1 diastolic dysfunction (impaired relaxation and low-normal LA pressure). A small pericardial effusion is present anteriorly. The estimated RA pressure by IVC dynamics 5-10mmHg . Mild tricuspid regurgitation. A trace of tricuspid regurgitation. Estimated peak systolic PA pressure is 30-35 mmHg . Previous Study No prior studies available for comparison. Signature Findings Rhythm/BPRegular sinus rhythm during the exam. Left Ventricle The left ventricle is chamber size (by vol index) is normal (male - LVED vol - 34-74ml/m2). Mild basal septal hypertrophy is present. The following segment(s) appear akinetic: mid-distal septum and apex and basal inferior ocampo. The anterior wall is severely hypokinetic. The basal septum and lateral ocampo contract normally. Global LV systolic function btwd-ui-htgjxrglpv reduced . LVEF by Savage's method of disk assessment is xtvogd-qb-rwnxcqtrnw reduced (40%) . Grade 1 diastolic dysfunction (impaired relaxation and low-normal LA pressure). Left AtriumLA is incompletely visualized, unable to estimate LA size. Right VentricleRV pacing wire is visualized . The right ventricular chamber size and systolic function are within normal limits. Right Atrium RA size is normal. Atrial SeptumIV saline contrast injection was negative for a PFO (patent foramen ovale) at rest . Aortic Valve Mild AoV cusp thickening. Mild AoV cusp calcification. No evidence of aortic regurgitation. Mitral Valve Trace mitral regurgitation. Tricuspid ValveMild tricuspid regurgitation. A trace of tricuspid regurgitation. Estimated peak systolic PA pressure is 30-35 mmHg . Pulmonic Valve PV is not well visualized; function appears normal by Doppler visualized. AortaAortic root size (Sinus of Valsalva diameter) is normal . PericardiumA small pericardial effusion is present anteriorly. IVC/SVC/PA/PV/PleuralThe estimated RA pressure by IVC dynamics 5-10mmHg . [facility] Circ SupportIntra Aortic Balloon Pump (IABP) is present. Chambers/Structures Left Ventricle LVIDd: 4.37 cm LVIDs: 2.7 cm LV Septum Diastolic: 1.37 cm LV PW Diastolic: 0.86 cmLV FS: 38.2 % LVEDV Savage's:110.73 ml LVESV Savage's:66.49 mlLVEDVI: 71 ml/m^2 LVEF Savage's: 40 %LVESVI: 42 ml/m^2 LVOT Diameter: 1.85 cm Doppler/Quantitative Measurements Mitral Valve MV Peak E-Wave: 0.45 m/sMV Peak A-Wave: 0.79 m/s E/A Ratio: 0.58 Peak Gradient: 0.83 mmHg MV Isidro. Peak: Tissue Doppler E' Lateral Velocity: 0.04 m/s E/E': 10.75 Aortic Valve Peak Velocity: 1.2 m/s Mean Velocity: 0.8 m/s Peak Gradient: 5.75 mmHg Mean Gradient: 2.99 mmHg AV Area (continuity): 2.81 cm^2 AV VTI: 18.69 cm AV DVI: 1.05 LVOT Peak Velocity: 1.02 m/s Peak Gradient: 4.15 mmHg Mean Velocity: 0.64 m/s Mean Gradient: 2.03 mmHg LVOT Diameter: 1.85 cmLVOT VTI: 19.55 cm LVOT Area: 2.69 cm^2LVOT SV:52.52 ml LVOT CO: 4.73 l/min LVOT CI: 3.01 l/min/m^2 Tricuspid Valve TR Velocity: 2.51 m/s TR Gradient: 25.24 mmHg Procedure Note Interface, External Ris In - 03/24/2018 2:43 PM CDT Transthoracic Echocardiography Report (TTE) Demographics Patient Name JOAN MULLINS Date of Study 03/24/2018 DIANE Gender Male Visit Number [id number] Race Unknown Room Number C832 Number Date of 1940 Referring Physician Age 77 year(s) Trust Officer NEWTON Murphy, RDCS,RVT,RDMS Interpreting Colten Reina MD Physician Fellow KENZIE Whittington Procedure Type of Study TTE procedure:2DECHO W DOPPLER(CW/PW/COLOR) (STAT) Indications:Myocardial infarction. Clinical History LAD, IABP, CAD, STEMI Height: 64 inches Weight: 54.43 kg (120 lbs) BSA: 1.57 m^2 BMI: 20.6 kg/m^2 HR: 90 bpm BP: 138/71 mmHg Summary The left ventricle is chamber size (by vol index) is normal (male - LVED vol - 34-74ml/m2). Mild basal septal hypertrophy is present. The following segment(s) appear akinetic: mid-distal septum and apex and basal inferior ocampo. The anterior wall is severely hypokinetic. The basal septum and lateral ocampo contract normally. Global LV systolic function bshq-bb-fqjjuvbtbs reduced . LVEF by Savage's method of disk assessment is ydqszl-cp-kkuaebkyoc reduced (40%) . Grade 1 diastolic dysfunction (impaired relaxation and low-normal LA pressure). A small pericardial effusion is present anteriorly. The estimated RA pressure by IVC dynamics 5-10mmHg . Mild tricuspid regurgitation. A trace of tricuspid regurgitation. Estimated peak systolic PA pressure is 30-35 mmHg . Previous Study No prior studies available for comparison. Signature Findings Rhythm/BP Regular sinus rhythm during the exam. Left Ventricle The left ventricle is chamber size (by vol index) is normal (male - LVED vol - 34-74ml/m2). Mild basal septal hypertrophy is present. The following segment(s) appear akinetic: mid-distal septum and apex and basal inferior ocampo. The anterior wall is severely hypokinetic. The basal septum and lateral ocampo contract normally. Global LV systolic function bfnr-wa-ihqvvsbqwi reduced . LVEF by Savage's method of disk assessment is wowbjd-ft-yecbchgxas reduced (40%) . Grade 1 diastolic dysfunction (impaired relaxation and low-normal LA pressure). Left Atrium LA is incompletely visualized, unable to estimate LA size. Right Ventricle RV pacing wire is visualized . The right ventricular chamber size and systolic function are within normal limits. Right Atrium RA size is normal. Atrial Septum IV saline contrast injection was negative for a PFO (patent foramen ovale) at rest . Aortic Valve Mild AoV cusp thickening. Mild AoV cusp calcification. No evidence of aortic regurgitation. Mitral Valve Trace mitral regurgitation. Tricuspid Valve Mild tricuspid regurgitation. A trace of tricuspid regurgitation. Estimated peak systolic PA pressure is 30-35 mmHg . Pulmonic Valve PV is not well visualized; function appears normal by Doppler visualized. Aorta Aortic root size (Sinus of Valsalva diameter) is normal . Pericardium A small pericardial effusion is present anteriorly. IVC/SVC/PA/PV/Pleural The estimated RA pressure by IVC dynamics 5-10mmHg . [facility] Circ Support Intra Aortic Balloon Pump (IABP) is present. Chambers/Structures Left Ventricle LVIDd: 4.37 cm LVIDs: 2.7 cm LV Septum Diastolic: 1.37 cm LV PW Diastolic: 0.86 cm LV FS: 38.2 % LVEDV Savage's:110.73 ml LVESV Savage's:66.49 ml LVEDVI: 71 ml/m^2 LVEF Savage's: 40 % LVESVI: 42 ml/m^2 LVOT Diameter: 1.85 cm Doppler/Quantitative Measurements Mitral Valve MV Peak E-Wave: 0.45 m/s MV Peak A-Wave: 0.79 m/s E/A Ratio: 0.58 Peak Gradient: 0.83 mmHg MV Isidro. Peak: Tissue Doppler E' Lateral Velocity: 0.04 m/s E/E': 10.75 Aortic Valve Peak Velocity: 1.2 m/s Mean Velocity: 0.8 m/s Peak Gradient: 5.75 mmHg Mean Gradient: 2.99 mmHg AV Area (continuity): 2.81 cm^2 AV VTI: 18.69 cm AV DVI: 1.05 LVOT Peak Velocity: 1.02 m/s Peak Gradient: 4.15 mmHg Mean Velocity: 0.64 m/s Mean Gradient: 2.03 mmHg LVOT Diameter: 1.85 cm LVOT VTI: 19.55 cm LVOT Area: 2.69 cm^2 LVOT SV:52.52 ml LVOT CO: 4.73 l/min LVOT CI: 3.01 l/min/m^2 Tricuspid Valve TR Velocity: 2.51 m/s TR Gradient: 25.24 mmHg Performing Organization Address City/[facility] Phone Number [facility] * Fibrinogen (03/23/2018 11:49 PM CDT) Only the most recent of 2 results within the time period is included. Fibrinogen 441 (H) 225 - 434 mg/dl [facility] Specimen Blood Performing Organization Address City/[facility] Phone Number [address] [address] [facility] * Creatine Kinase (CK) (03/23/2018 6:06 PM CDT) Total CK 557 (H) 29 - 200 U/L [facility] Specimen Blood Performing Organization Address [facility] Phone Number [address] [phone] [facility] after 05/21/2017 Insurance Payer Benefit Subscriber ID Type Phone Address Plan / Group [employer] [facility] [facility] Advance Directives For more information, please contact: [address] [address] Date Inactivated Comments Code Status Date Activated Full Code 05/17/2018 10:13 AM This code status was determined by: Patient 04/08/2018 12:00 AM Full Code 04/07/2018 11:40 AM This code status was determined by: Patient 04/02/2018 5:19 PM Full Code 03/27/2018 8:15 AM This code status was determined by: Patient 03/27/2018 8:15 AM Full Code 03/26/2018 11:15 AM This code status was determined by: Patient 03/26/2018 11:15 AM Full Code 03/23/2018 5:50 PM This code status was determined by: Patient
[2018-05-22 14:25] LABS: BASOPHILS # (AUTO) 0.1 (0.0-0.1); BASOPHILS % 0.7 % (0.0-1.0); EOSINOPHILS # (AUTO) 0.9 (0.0-0.4); EOSINOPHILS % 7.9 % (0.0-6.0); HEMATOCRIT 33.4 % (38.2-49.6); HEMOGLOBIN 10.7 g/dL (14.0-18.0); LYMPHOCYTES # (AUTO) 2.1 (1.0-3.2); LYMPHOCYTES % 19.7 % (18.0-39.1); MEAN CORPUSCULAR HEMOGLOBIN 29.6 pg (28-32); MEAN CORPUSCULAR VOLUME 92.3 fL (81-99); MONOCYTES # (AUTO) 0.7 (0.2-0.8); MONOCYTES % 6.3 % (4.4-11.3); NEUTROPHILS % 65.1 % (38.7-80.0); PLATELET COUNT 286 x10e3/uL (140-360); RED BLOOD COUNT 3.62 x10e6/uL (4.3-5.7); RED CELL DISTRIBUTION WIDTH 13.6 % (11.7-14.4)
[2018-05-22 14:43] LABS: INR 1.02; PROTHROMBIN TIME 14.3 seconds (11.9-14.5)
[2018-05-22 14:44] LABS: PARTIAL THROMBOPLASTIN TIME 50.7 seconds (23.8-35.5)
[2018-05-22 14:51] LABS: ALANINE AMINOTRANSFERASE 16 IU/L (0-55); ALKALINE PHOSPHATASE 64 IU/L (40-150); ANION GAP 12.2 mmol/L (8-16); BLOOD UREA NITROGEN 13 mg/dL (7-26); BUN/CREATININE RATIO 15 (6-25); CALCIUM 9.6 mg/dL (8.4-10.2); CARBON DIOXIDE 30 mmol/L (22-29); CHLORIDE 99 mmol/L (98-107); CREATININE, SERUM 0.86 mg/dL (0.72-1.25); EST GLOMERULAR FILTRATION RATE > 60 ML/MIN (60-); GLUCOSE 177 mg/dL (74-118); POTASSIUM 4.2 mmol/L (3.5-5.1); SODIUM 137 mmol/L (136-145)
[2018-05-22] MEDS ORDERED: SODIUM CHLORIDE 0.9% 1000ML 1,000 ML ONE (16:30)
[2018-05-22] MEDS ORDERED: HYDROCODONE/APAP 10MG-325MG TAB PO ONE (17:15)
[2018-05-22 18:26] VITALS: BP 112/72
== END 2018-05-22 18:30 | disposition home or self-care (01) ==
LOC: ER 13:33
DX: Z98.890 Other specified postprocedural states (principal); R58 Hemorrhage, not elsewhere classified; E11.65 Type 2 diabetes mellitus with hyperglycemia; I73.9 Peripheral vascular disease, unspecified; I25.10 Atherosclerotic heart disease of native coronary artery without angina pectoris; I10 Essential (primary) hypertension; E78.5 Hyperlipidemia, unspecified; Z87.891 Personal history of nicotine dependence
CPT/HCPCS: 36415; 80053; 85025; 85610; 85730; 99283; J7030

== ENCOUNTER 2020-10-28 13:59 | Emergency (ER) | payer MEDICARE, OTHER ==
[~2020-10-28] VITALS: Ht 162.6 cm; Wt 59.0 kg
[2020-10-28] MEDS ORDERED: KETOROLAC TROMETHAMINE 30 MG/ML VIAL IM STA (14:34)
[2020-10-28] MEDS ORDERED: KETOROLAC TROMETHAMINE 30 MG/ML VIAL ONE (14:45)
[2020-10-28 16:42] VITALS: BP 126/71
== END 2020-10-28 16:44 | disposition home or self-care (01) ==
LOC: ER 14:33
DX: M54.2 Cervicalgia (principal); M25.561 Pain in right knee; V43.53XA Car driver injured in collision with pick-up truck in traffic accident, initial encounter; Y92.488 Other paved roadways as the place of occurrence of the external cause; I10 Essential (primary) hypertension; E11.9 Type 2 diabetes mellitus without complications; E78.5 Hyperlipidemia, unspecified
CPT/HCPCS: 71046; 72050; 72125; 73562; 99283; J1885

== ENCOUNTER 2021-05-10 08:35 | Emergency (ER) | payer MEDICARE ==
[~2021-05-10] VITALS: Ht 165.1 cm; Wt 68.0 kg
[2021-05-10] MEDS ORDERED: SODIUM CHLORIDE 0.9% 250ML 250 ML IV ONE (10:30)
[2021-05-10 10:43] VITALS: BP 121/68
== END 2021-05-10 10:54 | disposition home or self-care (01) ==
LOC: FSED 08:42
DX: R05.9 Cough, unspecified (principal); J06.9 Acute upper respiratory infection, unspecified; R53.1 Weakness; Z20.822 Contact with and (suspected) exposure to COVID-19; I10 Essential (primary) hypertension; E11.9 Type 2 diabetes mellitus without complications; E78.5 Hyperlipidemia, unspecified
CPT/HCPCS: 71045; 80048; 80053; 82553; 84484; 85025; 93005; 99283; U0002

== ENCOUNTER 2022-02-24 16:58 | Emergency (ER) | payer MEDICARE ==
[~2022-02-24] VITALS: Ht 162.6 cm; Wt 52.2 kg
[2022-02-24] MEDS ORDERED: ACETAMINOPHEN 325 MG TAB PO ONE (18:00)
[2022-02-24] MEDS ORDERED: SODIUM CHLORIDE 0.9% 1000ML 1,000 ML IV SCH (18:00)
[2022-02-24] MEDS ORDERED: SODIUM CHLORIDE 0.9% 1000ML 1,000 ML ONE (18:29)
[2022-02-24] MEDS ORDERED: ACETAMINOPHEN 325 MG TAB ONE (18:29)
[2022-02-24] MEDS ORDERED: SPIRONOLACTONE25 MG PO (18:56)
[2022-02-24] MEDS ORDERED: FOLIC ACID0.4 MG PO (18:56)
[2022-02-24] MEDS ORDERED: NEURONTIN100 MG PO (18:56)
[2022-02-24] MEDS ORDERED: B12 ACTIVE1000 MCG (18:56)
[2022-02-24] MEDS ORDERED: PLAVIX75 MG PO (18:56)
[2022-02-24] MEDS ORDERED: ATORVASTATIN CA10 MG PO (18:56)
[2022-02-24] MEDS ORDERED: ASPIRIN81 MG PO (18:56)
[2022-02-24] MEDS ORDERED: FAMOTIDINE20 MG PO (18:56)
[2022-02-24] MEDS ORDERED: MIDODRINE HCL2.5 MG PO (18:56)
[2022-02-24] MEDS ORDERED: BUMETANIDE0.25 MG/1 IV (18:56)
== END 2022-02-24 20:18 | disposition home or self-care (01) ==
LOC: FSED 17:19
DX: R50.9 Fever, unspecified (principal); U07.1 COVID-19; R53.1 Weakness; I12.9 Hypertensive chronic kidney disease with stage 1 through stage 4 chronic kidney disease, or unspecified chronic kidney disease; E11.22 Type 2 diabetes mellitus with diabetic chronic kidney disease; N18.9 Chronic kidney disease, unspecified; R94.31 Abnormal electrocardiogram [ECG] [EKG]
CPT/HCPCS: 71046; 80053; 81003; 82553; 84484; 85025; 93005; 99283; J7030; U0002

== ENCOUNTER 2024-01-16 18:49 | Inpatient (IN) | payer MEDICARE ==
[~2024-01-16] VITALS: Ht 162.6 cm; Wt 52.4 kg
[~2024-01-16 18:49] MED LIST changes: +ASPIRIN81 MG PO; +ATORVASTATIN CA10 MG PO; +B12 ACTIVE1000 MCG; +BUMETANIDE0.25 MG/1 IV; +FAMOTIDINE20 MG PO; +FOLIC ACID0.4 MG PO; +MIDODRINE HCL2.5 MG PO; +NEURONTIN100 MG PO; +PLAVIX75 MG PO; +SPIRONOLACTONE25 MG PO
[2024-01-16 19:43] LABS: BASOPHILS % 0.3 % (0.0-1.0); EOSINOPHILS % 0.3 % (0.0-6.0); HEMATOCRIT 34.8 % (38.2-49.6); HEMOGLOBIN 11.2 g/dL (14.0-18.0); LYMPHOCYTES # (AUTO) 1.2 (1.0-3.2); LYMPHOCYTES % 8.7 % (18.0-39.1); MEAN CORPUSCULAR HEMOGLOBIN 31.2 pg (28-32); MEAN CORPUSCULAR HGB CONC 32.2 g/dL (31-35); MEAN CORPUSCULAR VOLUME 96.9 fL (81-99); MONOCYTES # (AUTO) 0.9 (0.2-0.8); MONOCYTES % 6.9 % (4.4-11.3); NEUTROPHILS # (AUTO) 11.4 (2.1-6.9); NEUTROPHILS % 83.4 % (38.7-80.0); PLATELET COUNT 178 x10e3/uL (140-360); RED BLOOD COUNT 3.59 x10e6/uL (4.3-5.7); RED CELL DISTRIBUTION WIDTH 13.8 % (11.7-14.4)
[2024-01-16 19:56] LABS: INR 0.94; PARTIAL THROMBOPLASTIN TIME 35.6 seconds (23.8-35.5); PROTHROMBIN TIME 13.2 seconds (11.9-14.5)
[2024-01-16 20:02] LABS: ALBUMIN 3.7 g/dL (3.5-5.0); ALBUMIN/GLOBULIN RATIO 1.1 (0.8-2.0); BILIRUBIN,TOTAL 0.5 mg/dL (0.2-1.2); CALCIUM 9.1 mg/dL (8.4-10.2); CREATININE, SERUM 1.76 mg/dL (0.72-1.25); TOTAL PROTEIN 7.1 g/dL (6.5-8.1)
[2024-01-16] MEDS ORDERED: Vancomycin IV 1 GM VIAL ONE (20:43)
[2024-01-16] MEDS: SODIUM CHLORIDE 0.9% 1000ML 1,000 ML IV ONE ×2 (21:22→22:36)
[2024-01-16] MEDS: Vancomycin IV 1 GM in SODIUM CHLORIDE 0.9% 250ML 250 ML IV ONE (21:23)
[2024-01-16] MEDS: ACETAMINOPHEN 325 MG TAB PO ONE (21:25)
[2024-01-16] MEDS ORDERED: SODIUM CHLORIDE 0.9% 1000ML 1,000 ML ONE (22:08)
[2024-01-16] MEDS ORDERED: DEXTROSE 50% SYRINGE 50 ML IV PRN (22:30)
[2024-01-16] MEDS: METRONIDAZOLE 500MG/NS 100ML 100 ML IV SCH (22:35)
[2024-01-16 22:45] VITALS: TEMP 98.6
[2024-01-16 23:14] VITALS: PULSE 63; RESP 18
[2024-01-16 23:15] VITALS: PULSE 63; RESP 18; O2SAT 98
[2024-01-16] MEDS: MIDODRINE 2.5 MG TAB PO ONE (23:59)
[2024-01-17] VITALS (11 sets, daily range): BP systolic 88–116; BP diastolic 40–56; PULSE 54–105; RESP 16–18; TEMP 97.7–98.9; O2SAT 96–100
[2024-01-17] MEDS: SODIUM CHLORIDE 0.9% 1000ML 1,000 ML IV SCH (00:03)
[2024-01-17] MEDS ORDERED: ACETAMINOPHEN 325 MG TAB PO PRN (00:30)
[2024-01-17] MEDS ORDERED: GLIMEPIRIDE2 MG PO (04:45)
[2024-01-17] MEDS ORDERED: FERROUS SULFAT325 MG PO (04:45)
[2024-01-17] MEDS ORDERED: METOPROLOL SUCC25 MG PO (04:45)
[2024-01-17] MEDS ORDERED: PIOGLITAZONE HC45 MG PO (04:45)
[2024-01-17] MEDS ORDERED: BUMETANIDE1 MG PO (04:45)
[2024-01-17 06:01] LABS: BASOPHILS % 0.2 % (0.0-1.0); EOSINOPHILS # (AUTO) 0.2 (0.0-0.4); EOSINOPHILS % 1.5 % (0.0-6.0); HEMATOCRIT 30.3 % (38.2-49.6); HEMOGLOBIN 9.3 g/dL (14.0-18.0); LYMPHOCYTES # (AUTO) 1.6 (1.0-3.2); LYMPHOCYTES % 12.9 % (18.0-39.1); MEAN CORPUSCULAR HEMOGLOBIN 30.8 pg (28-32); MEAN CORPUSCULAR HGB CONC 30.7 g/dL (31-35); MEAN CORPUSCULAR VOLUME 100.3 fL (81-99); MONOCYTES # (AUTO) 1.1 (0.2-0.8); MONOCYTES % 9.1 % (4.4-11.3); NEUTROPHILS # (AUTO) 9.4 (2.1-6.9); NEUTROPHILS % 75.6 % (38.7-80.0); PLATELET COUNT 145 x10e3/uL (140-360); RED BLOOD COUNT 3.02 x10e6/uL (4.3-5.7); RED CELL DISTRIBUTION WIDTH 14.2 % (11.7-14.4); WHITE BLOOD COUNT 12.45 x10e3/uL (4.8-10.8)
[2024-01-17] MEDS: MIDODRINE 2.5 MG TAB PO SCH (06:24)
[2024-01-17 06:56] LABS: ALBUMIN 2.6 g/dL (3.5-5.0); ALBUMIN/GLOBULIN RATIO 0.9 (0.8-2.0); ANION GAP 9.3 mmol/L (8-16); BILIRUBIN,TOTAL 0.4 mg/dL (0.2-1.2); CREATININE, SERUM 1.52 mg/dL (0.72-1.25); TOTAL PROTEIN 5.4 g/dL (6.5-8.1)
[2024-01-17 07:06] LABS: POTASSIUM 3.3 mmol/L (3.5-5.1)
[2024-01-17] MEDS: INSULIN REGULAR, HUMAN 100 UNIT/1 ML SQ SCH (07:30)
[2024-01-17] MEDS: FAMOTIDINE 20 MG TAB PO SCH (09:00)
[2024-01-17] MEDS: FERROUS SULFATE 325 MG TAB PO SCH (09:00)
[2024-01-17] MEDS: POTASSIUM CHLORIDE 10MEQ EA PO ONE (10:09)
[2024-01-17] MEDS: MIDODRINE HCL 5 MG TABLET PO SCH (11:39)
[2024-01-17] MEDS ORDERED: MIDODRINE HCL 5 MG TABLET PO SCH ×3 (12:00→16:00)
[2024-01-17] MEDS: ATORVASTATIN 40 MG TAB PO SCH (22:04)
[2024-01-18] VITALS (7 sets, daily range): BP systolic 98–121; BP diastolic 40–52; PULSE 50–63; RESP 17–18; TEMP 97.7–98.7; O2SAT 94–100
[2024-01-18 03:09] LABS: % IRON SATURATION 10 % (15-50); IRON 24 ug/dL (65-175); TOTAL IRON BINDING CAPACITY 235 ug/dL (261-478); TRANSFERRIN 168 mg/dL (174-364)
[2024-01-18] MEDS: Morphine 2mg Syringe 2 MG/ML SYR IV PRN (08:57)
[2024-01-18] MEDS ORDERED: BUPIVACAINE 0.5%/EPI 30 ML SDV INJ ONE (11:35)
[2024-01-18] MEDS ORDERED: LIDOCAINE HCL 1% LOCAL INJ 20 ML VIAL ONE (11:35)
[2024-01-18] MEDS ORDERED: LIDOCAINE JELLY 2% 10ML URO-JET ONE (11:35)
[2024-01-18] MEDS ORDERED: HYDROMORPHONE 1MG/1ML INJ IV PRN (12:45)
[2024-01-18] MEDS: SODIUM CHLORIDE 0.9% 1000ML 1,000 ML IV SCH (12:45)
[2024-01-18] MEDS ORDERED: FENTANYL CITRATE/PF 100MCG/2 ML INJ ONE (13:10)
[2024-01-18] MEDS: ONDANSETRON HCL INJ 2MG/ML 2ML 2 MG/ML VIAL IV PRN (13:37)
[2024-01-18 14:53] LABS: BASOPHILS # (AUTO) 0.1 (0.0-0.1); BASOPHILS % 0.4 % (0.0-1.0); EOSINOPHILS # (AUTO) 0.1 (0.0-0.4); EOSINOPHILS % 0.8 % (0.0-6.0); HEMATOCRIT 33.2 % (38.2-49.6); HEMOGLOBIN 10.4 g/dL (14.0-18.0); LYMPHOCYTES # (AUTO) 1.2 (1.0-3.2); LYMPHOCYTES % 10.5 % (18.0-39.1); MEAN CORPUSCULAR HEMOGLOBIN 31.6 pg (28-32); MEAN CORPUSCULAR HGB CONC 31.3 g/dL (31-35); MEAN CORPUSCULAR VOLUME 100.9 fL (81-99); MONOCYTES # (AUTO) 0.8 (0.2-0.8); MONOCYTES % 6.9 % (4.4-11.3); NEUTROPHILS # (AUTO) 9.3 (2.1-6.9); PLATELET COUNT 165 x10e3/uL (140-360); RED BLOOD COUNT 3.29 x10e6/uL (4.3-5.7); RED CELL DISTRIBUTION WIDTH 14.1 % (11.7-14.4); WHITE BLOOD COUNT 11.47 x10e3/uL (4.8-10.8)
[2024-01-18 15:13] LABS: ANION GAP 14.8 mmol/L (8-16); CALCIUM 8.2 mg/dL (8.4-10.2); CREATININE, SERUM 1.08 mg/dL (0.72-1.25); POTASSIUM 3.8 mmol/L (3.5-5.1)
[2024-01-18] MEDS ORDERED: PHENYLEPHRINE HCL 1% 10 MG/ML VIAL ONE (17:18)
[2024-01-18] MEDS ORDERED: SEVOFLURANE INHAL SOLN 250 ML PEN BTL ONE (17:18)
[2024-01-18] MEDS ORDERED: FAMOTIDINE 20 MG/2 ML VIAL IV ONE (17:18)
[2024-01-18] MEDS ORDERED: PROPOFOL IV EMULSION 10 MG/ML 20 ML VIAL ONE (17:18)
[2024-01-18] MEDS ORDERED: ONDANSETRON HCL INJ 2MG/ML 2ML 2 MG/ML VIAL ONE (17:18)
[2024-01-18] MEDS ORDERED: KETOROLAC TROMETHAMINE 30 MG/ML VIAL ONE (17:18)
[2024-01-18] MEDS ORDERED: LIDOCAINE HCL 2% LOCAL INJ 5 ML SDV VIAL INJ ONE (17:18)
[2024-01-18] MEDS ORDERED: ACETAMINOPHEN 1000 MG/100 ML IV ONE (17:18)
[2024-01-18] MEDS ORDERED: SODIUM CHLORIDE 0.9% INJ 100 ML BAG ONE (17:18)
[2024-01-18] MEDS: Vancomycin IV 1 GM in SODIUM CHLORIDE 0.9% 250ML 250 ML IV SCH (18:12)
[2024-01-19] VITALS (7 sets, daily range): BP systolic 122–149; BP diastolic 53–69; PULSE 64–74; RESP 17–20; TEMP 98.1–99.5; O2SAT 93–98
[2024-01-19] MEDS: ACETAMINOPHEN/CODEINE 300MG - 30MG TAB PO PRN (07:41)
[2024-01-19] MEDS: IRON SUCROSE 100 MG in SODIUM CHLORIDE 0.9% 100 ML IV SCH (09:00)
[2024-01-19] MEDS: SODIUM FERRIC GLUCONATE COMPLX 125 MG in SODIUM CHLORIDE 0.9% 100 ML IV SCH (16:14)
[2024-01-20] VITALS: BP 141/80; PULSE 71; RESP 18; TEMP 98.7; O2SAT 95
[2024-01-20 04:00] VITALS: BP 139/58; PULSE 70; RESP 17; TEMP 98.5; O2SAT 95
[2024-01-20 08:00] VITALS: BP 142/57; PULSE 52; RESP 18; TEMP 97.8; O2SAT 97
[2024-01-20 08:54] VITALS: BP 139/58; PULSE 70; RESP 17; TEMP 98.5; O2SAT 95
[2024-01-20] MEDS ORDERED: NEOMYCIN/POLYMYXIN/BACITRACIN 15 GM TUBE TOP PRN (09:15)
[2024-01-20 12:00] VITALS: BP 138/62; PULSE 66; RESP 17; TEMP 98.6; O2SAT 96
== END 2024-01-20 17:20 | disposition home or self-care (01) | DRG 580 ==
LOC: ER 18:56 → ERHOLD 22:22 → MED/SURG2 23:43
PROVIDERS: ADMIT Internal Medicine; ATTEND Internal Medicine
PROC: 0W9M00Z Drainage of Male Perineum with Drainage Device, Open Approach (ICD-10-PCS; 2024-01-18)
PROC: 0KBM0ZZ Excision of Perineum Muscle, Open Approach (ICD-10-PCS; principal; 2024-01-18 11:37)
DX: L02.215 Cutaneous abscess of perineum (principal); E46 Unspecified protein-calorie malnutrition; Z68.1 Body mass index [BMI] 19.9 or less, adult; N17.9 Acute kidney failure, unspecified; I11.0 Hypertensive heart disease with heart failure; I50.22 Chronic systolic (congestive) heart failure; I95.9 Hypotension, unspecified; E11.9 Type 2 diabetes mellitus without complications; D50.9 Iron deficiency anemia, unspecified; E78.5 Hyperlipidemia, unspecified; I48.0 Paroxysmal atrial fibrillation; L72.9 Follicular cyst of the skin and subcutaneous tissue, unspecified; I25.10 Atherosclerotic heart disease of native coronary artery without angina pectoris; R63.4 Abnormal weight loss; Z11.52 Encounter for screening for COVID-19; Z79.02 Long term (current) use of antithrombotics/antiplatelets; Z79.82 Long term (current) use of aspirin; Z95.1 Presence of aortocoronary bypass graft; I25.2 Old myocardial infarction; Z89.422 Acquired absence of other left toe(s); Z89.412 Acquired absence of left great toe; Z89.431 Acquired absence of right foot; Z95.810 Presence of automatic (implantable) cardiac defibrillator; F17.210 Nicotine dependence, cigarettes, uncomplicated
CPT/HCPCS: 36415; 71045; 74176; 80048; 80053; 82607; 82746; 82948; 83540; 83605; 84466; 85025; 85045; 85610; 85730; 87040; 87071; 87075; 87186; 87205; 88304; 93005; 93306; 94799; 99284; J1885; J2001; J2270; J2371; J2405; J2543; J2916; J7030; J7050; U0002

== ENCOUNTER 2024-04-15 19:04 | Emergency (ER) | payer MEDICARE ==
[~2024-04-15] VITALS: Ht 162.6 cm; Wt 49.1 kg
[~2024-04-15 19:04] MED LIST changes: +BUMETANIDE1 MG PO; +FERROUS SULFAT325 MG PO; +GLIMEPIRIDE2 MG PO; +METOPROLOL SUCC25 MG PO; +PIOGLITAZONE HC45 MG PO
[2024-04-15 19:40] VITALS: PULSE 63; RESP 16; TEMP 99
[2024-04-15] MEDS ORDERED: CEPHALEXIN MONOHYDRATE 250 MG CAP ONE (20:29)
[2024-04-15] MEDS: CEPHALEXIN 500 MG CAP PO ONE (20:30)
[2024-04-15] MEDS: TETANUS/DIPHTHERIA TOX ADULT 0.5 ML SYR IM ONE (20:31)
[2024-04-15] MEDS: LIDOCAINE HCL 1% LOCAL INJ 20 ML VIAL INJ ONE (20:32)
[2024-04-15] MEDS ORDERED: CEPHALEXIN500 MG PO (20:55)
[2024-04-15] MEDS ORDERED: MUPIROCIN22 GM TOP (20:56)
[2024-04-15 21:52] VITALS: BP 132/62; PULSE 74; RESP 18; TEMP 97.3; O2SAT 100
== END 2024-04-15 21:17 | disposition home or self-care (01) ==
LOC: FSED 19:12
DX: S61.214A Laceration without foreign body of right ring finger without damage to nail, initial encounter (principal); S62.664A Nondisplaced fracture of distal phalanx of right ring finger, initial encounter for closed fracture; W23.1XXA Caught, crushed, jammed, or pinched between stationary objects, initial encounter; Y92.89 Other specified places as the place of occurrence of the external cause; I10 Essential (primary) hypertension; E11.9 Type 2 diabetes mellitus without complications; E78.5 Hyperlipidemia, unspecified; I48.91 Unspecified atrial fibrillation; I25.10 Atherosclerotic heart disease of native coronary artery without angina pectoris; I25.2 Old myocardial infarction; Z95.1 Presence of aortocoronary bypass graft
CPT/HCPCS: 12002; 73120; 90471; 90714; 99284; J2003

== ENCOUNTER 2024-05-31 16:26 | Emergency (ER) | payer MEDICARE ==
[~2024-05-31] VITALS: Ht 162.6 cm; Wt 48.3 kg
[~2024-05-31 16:26] MED LIST changes: +CEPHALEXIN500 MG PO; +MUPIROCIN22 GM TOP
[2024-05-31 17:11] VITALS: PULSE 65; RESP 16; TEMP 97.7; O2SAT 98
== END 2024-05-31 17:11 | disposition home or self-care (01) ==
LOC: FSED 16:44
DX: S01.111A Laceration without foreign body of right eyelid and periocular area, initial encounter (principal); W22.09XA Striking against other stationary object, initial encounter; Y92.89 Other specified places as the place of occurrence of the external cause; I10 Essential (primary) hypertension; E11.9 Type 2 diabetes mellitus without complications; E78.5 Hyperlipidemia, unspecified; I25.10 Atherosclerotic heart disease of native coronary artery without angina pectoris; I48.91 Unspecified atrial fibrillation; I25.2 Old myocardial infarction; Z95.1 Presence of aortocoronary bypass graft
CPT/HCPCS: 99282